=== PATIENT | male | born 1975 ===

== ENCOUNTER 2021-10-07 14:16 | Outpatient (REF) | payer OTHER, SELFPAY ==
[2021-10-07 14:42] LABS: MANUAL DIFF FLAG NO
[2021-10-07 15:00] LABS: Basophils Absolute Auto 0.1 X10*3/uL (0.0-0.2); Basophils Percent Auto 0.5 % (0-2); Eosinophils Absolute Auto 0.2 X10*3/uL (0.0-0.4); Eosinophils Percent Auto 1.5 % (0-4); Hematocrit 45.3 % (42.0-52.0); Hemoglobin 15.3 g/dl (14.0-18.0); Imm Gran Abs Auto 0.03 X10*3/uL (0.00-0.03); Imm Gran Pct Auto 0.3 % (0.0-0.4); Lymphocytes Percent Auto 29.3 % (20-40); Mean Corpuscular HGB Conc 33.8 g/dl (31.0-36.0); Mean Corpuscular Hemoglobin 30.6 pg (27.0-33.0); Mean Corpuscular Volume 90.6 fL (80.0-98.0); Mean Platelet Volume 10.6 fL (9.4-12.4); Monocytes Percent Auto 9.1 % (2-11); Neutrophils Absolute Auto 6.2 x10*3/uL (2.0-8.3); Neutrophils Percent Auto 59.3 % (45-73); Platelet Count 286 X10*3/uL (160-400); Red Cell Distribution Width 12.9 % (11.0-16.0); White Blood Count 10.4 X10*3/uL (4.8-10.8)
[2021-10-07 15:07] LABS: Estimated Average Glucose 117 mg/dL; Hemoglobin A1C 152.5273 umol/L; Hemoglobin A1c % 5.7 %
[2021-10-07 15:35] LABS: Alanine Aminotransferase 47 U/L (0-40); Albumin Level 4.6 g/dL (3.5-5.0); Alkaline Phosphatase 59 U/L (39-117); Anion Gap 14 (12-20); Aspartate Amino Transferase 39 U/L (5-37); Bilirubin Total 0.4 mg/dL (0.0-1.0); Blood Urea Nitrogen 23 mg/dL (9-16); Calcium 10.2 mg/dL (8.4-10.2); Carbon Dioxide 25 mmol/L (22-29); Chloride 103 mmol/L (96-108); Estimated Glomerular Filt Rate 52; Glucose Random 98 mg/dL (60-115); Potassium 4.2 mmol/L (3.3-5.1); Sodium 138 mmol/L (135-145); Total Protein 7.7 g/dL (6.5-8.0)
== END 2021-10-07 14:17 | disposition home or self-care (01) ==
LOC: HO.LAB 14:16
PROVIDERS: PCP Internal Medicine; Visit Provider Internal Medicine
DX: E11.9 Type 2 diabetes mellitus without complications (principal); R10.13 Epigastric pain; R19.7 Diarrhea, unspecified; Z80.0 Family history of malignant neoplasm of digestive organs
CPT/HCPCS: 36415; 80053; 83036; 85025

== ENCOUNTER 2022-08-19 12:51 | Outpatient (REF) | payer OTHER, SELFPAY | END 2022-08-19 12:52 | disposition home or self-care (01) | LOC: HO.HOSX 12:51 | PROVIDERS: PCP Internal Medicine; Visit Provider Physician Assistant | DX: M65.342 Trigger finger, left ring finger (principal) | CPT/HCPCS: 99202 ==

== ENCOUNTER 2022-08-19 13:30 | Outpatient (REF) | payer OTHER, SELFPAY ==
--- NOTE | ~2022-08-19 | XR_ITS ---
EXAMINATION: XR SHOULDER, LEFT CLINICAL INFORMATION: Pain COMPARISON: None available. TECHNIQUE: AP external rotation, Grashey, scapular Y, and axillary views of the left shoulder. FINDINGS: The bones and soft tissues are normal. No fracture. Glenohumeral and acromioclavicular alignment is anatomic with normal joint space. No abnormal soft tissue calcifications. XR/XR shoulder LT min 2V IMPRESSION: No significant osseous changes to explain patient's pain symptoms.
== END 2022-08-19 13:31 | disposition home or self-care (01) ==
LOC: HO.XRAY 13:30
PROVIDERS: PCP Internal Medicine; Visit Provider Nurse Practitioner Family
DX: M25.512 Pain in left shoulder (principal)
CPT/HCPCS: 73030

== ENCOUNTER 2022-09-25 11:21 | Day surgery (SDC) | payer OTHER, SELFPAY ==
--- NOTE | 2022-09-25 09:59 | W.PM.OPN ---
Operative Note Operative Note Date of Service: 09/25/22 Narrative: Operative Note Preop diagnosis: 1. Left ring finger Trigger finger Postop diagnosis: 1. Left ring finger Trigger finger Procedure: 1. Left ring finger A1 remigio release Surgeon: Kim Olson MD Anesthesia: local block using 1% lidocaine with epinephrine Findings: No locking or catching after A1 remigio release EBL: Less than 5 mL Tourniquet time: None Specimens: None Complications: None Disposition: Brought to recovery room in stable condition Plan: Follow-up for 10-14 days for wound check and suture removal Indications: The patient is 46 years old, with a left ring finger trigger finger that has been unresponsive to nonoperative management. The risks and benefits of operative treatment including but not limited to risk of damage to blood vessels, nerves, tendons, infection, persistent pain, persistent symptoms, recurrence or possible need for additional surgery were discussed with the patient and the patient wishes to proceed with surgery. Procedure: Once consent was obtained a local block was performed in the preop area using a combination of 1% lidocaine with epinephrine. The patient was then brought back to the operating suite and placed on the operative table in supine position. The left upper extremity was prepped and draped in a standard surgical fashion. Once assured that we had a good block, a 1.5 cm oblique incision was made centered over the A1 remigio of the left ring finger . The incision was made through the skin to the subcutaneous tissues using a #15 blade. Careful dissection was made down to the level of the A1 remigio using tenotomy scissors, with care being taken to protect the nearby neurovascular structures. A longitudinal incision was made in the A1 remigio 1st using a #15 blade, then using tenotomy scissors under direct visualization. The A1 remigio was noted to be thickened. Following our A1 remigio release, we no longer saw any locking or catching of the digit with flexion and extension. Once satisfied with our A1 remigio release the wound was copiously irrigated with normal saline and hemostasis was obtained with a brief period of local pressure. The skin edges were reapproximated with some 5.0 nylon suture material and a sterile dressing was applied. The patient appears to have tolerated the procedure well and with no complications. All digits were well vascularized at the conclusion of the case.
[2022-09-25 12:46] VITALS: BMI 40.0
--- NOTE | 2022-09-25 16:12 | MHC.SHP ---
Pre-Procedural Eval Section A Date of Service: 09/25/22 The patient is an INPATIENT: No Changes since office visit: No Cold of Flu in the past 2 weeks, No New Medical Problems, No Changes in Medication and No Patient answered all questions The History & Physical has been completed within 30 days and I have reviewed it.: Yes Section B Chief Complaint: Trigger finger, left ring finger Allergies: Allergies Allergy/AdvReac Type Severity Reaction Status Date / Time No Known Allergies Allergy Verified 09/25/22 13:18 Plan I have reviewed the history and physical and performed a pertinent physical examination on my patient. No changes have occurred unless specified. Time Spent With Patient Time: Total time managing care of this patient today ____ minutes.
[2022-09-25 16:14] VITALS: BP 129/86; PULSE 69; RESP 16; TEMP 36.9; O2SAT 97
== END 2022-09-25 16:19 | disposition home or self-care (01) ==
PROVIDERS: PCP Internal Medicine; Visit Provider Orthopaedic Surgery
PROC: (CPT 26055; principal; 2022-09-25 13:10)
DX: M65.342 Trigger finger, left ring finger (principal); R73.03 Prediabetes; Z79.84 Long term (current) use of oral hypoglycemic drugs; I10 Essential (primary) hypertension; F10.90 Alcohol use, unspecified, uncomplicated; F12.90 Cannabis use, unspecified, uncomplicated
CPT/HCPCS: 26055; J0171

== ENCOUNTER → 2022-10-08 14:28 | Outpatient (BNVA) | payer OTHER, SELFPAY | PROVIDERS: PCP Internal Medicine; Visit Provider Orthopaedic Surgery | DX: Z47.89 Encounter for other orthopedic aftercare (principal); Z87.39 Personal history of other diseases of the musculoskeletal system and connective tissue | CPT/HCPCS: 99212 ==

== ENCOUNTER 2022-12-19 09:39 | Outpatient (REF) | payer OTHER, SELFPAY ==
--- NOTE | ~2022-12-19 | XR_ITS ---
X-RAY RIGHT KNEE X-RAY BILATERAL STANDING KNEES CLINICAL HISTORY: Pain. COMPARISON: No relevant prior studies are available for comparison. TECHNIQUE: 2 views of the right knee. One single standing view of both knees. FINDINGS: No evidence of acute fractures or subluxation. Severe joint space narrowing and subcortical sclerosis in the medial compartment of the right knee. Mild to moderate joint space narrowing in the other compartments of both knees. Marginal osteophytes in the right knee. No erosions or chondrocalcinosis. Small joint effusion in the right knee. XR/XR knee standing BI IMPRESSION: 1. No acute fractures or subluxation. 2. Severe degenerative osteoarthritis in the medial compartment of the right knee. 3. Mild to moderate degenerative osteoarthritis in the other compartments of the knees. 4. Small right joint effusion.
--- NOTE | ~2022-12-19 | XR_ITS ---
X-RAY RIGHT KNEE X-RAY BILATERAL STANDING KNEES CLINICAL HISTORY: Pain. COMPARISON: No relevant prior studies are available for comparison. TECHNIQUE: 2 views of the right knee. One single standing view of both knees. FINDINGS: No evidence of acute fractures or subluxation. Severe joint space narrowing and subcortical sclerosis in the medial compartment of the right knee. Mild to moderate joint space narrowing in the other compartments of both knees. Marginal osteophytes in the right knee. No erosions or chondrocalcinosis. Small joint effusion in the right knee. XR/XR knee RT 2V IMPRESSION: 1. No acute fractures or subluxation. 2. Severe degenerative osteoarthritis in the medial compartment of the right knee. 3. Mild to moderate degenerative osteoarthritis in the other compartments of the knees. 4. Small right joint effusion.
== END 2022-12-19 09:40 | disposition home or self-care (01) ==
LOC: HO.HOSX 09:39
PROVIDERS: Visit Provider Orthopaedic Surgery
DX: M17.11 Unilateral primary osteoarthritis, right knee (principal); M21.161 Varus deformity, not elsewhere classified, right knee
CPT/HCPCS: 73560; 73565

== ENCOUNTER 2022-12-19 11:50 | Outpatient (AMB) | payer OTHER, SELFPAY ==
--- NOTE | 2022-12-19 11:58 | MHC.OFFVIS ---
Intake Vital Signs 12/19/22 11:59 Height 6 ft 4 in Weight 329 lb BMI 40.0 Intake Visit Reasons: New Prob- Right knee OA Intake Note: Fernando is a 46 year old female who presents today as a new patient with complaints of right knee pain. Hx of injections? Hx of PT? Patient reports ongoing pain for many years, it has gotten worse in the past year. He states his pain is on the lateral aspect of the knee. Pain is worse at night, walking, using stairs. Having c/o of left shoulder pain. Allergies No Known Allergies Allergy (Verified 12/19/22 11:59) HPI New Prob- Right knee OA HPI Details This is a 46-year-old gentleman who comes in today with right knee pain. He states the pain is intolerable . He has pain after activity which makes it difficult to sleep. He has difficulty with daily activities. This has been worsening over the past several years. He has a deformity of his right knee which she has had since he was young trialed although he can not specifically tell me why. He states he has always noticed that he has been very bowlegged on that side but it has gotten worse and his pain is becoming unbearable. He has had injections in the past and used an unloading brace both of which are not helpful. [facility] Medical History History of prediabetes Social History Alcohol intake: current Substance Use Type: Marijuana Physical Exam Vital Signs: BMI result Body Mass Index 40.0 Extrem Other: Severe varus deformity with tenderness to palpation over the medial joint line. Antalgic gait. 10-130 degrees of motion. Severe varus thrust with gait Results Reviewed Results Reviewed: I personally reviewed relevant radiographs. 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 He also has significant pain and is limited in his daily activities. He has failed conservative care. He states he scheduled to have bariatric surgery. I recommend that he return to see me after bariatric surgery we can further discuss. Given the extent of his deformity and his attempts at conservative treatment, all of which have failed, I do think he would benefit from arthroplasty even given his relatively young age. I discussed this with him. We will discuss further after he completes his bariatric surgery. Orders: Orders XR knee RT 2V Today M25.569 - Pain in unspecified knee XR knee standing BI Today M25.569 - Pain in unspecified knee Coding Level of Care Code New Pt Level 4 (98027) Diagnoses Varus deformity, not elsewhere classified, right knee M21.161 Arthritis of right knee M17.11
[2022-12-19 11:59] VITALS: BMI 40.0
== END 2022-12-19 12:30 | disposition home or self-care (01) ==
PROVIDERS: PCP Internal Medicine; Visit Provider Orthopaedic Surgery
DX: M21.161 Varus deformity, not elsewhere classified, right knee (principal); M17.11 Unilateral primary osteoarthritis, right knee
CPT/HCPCS: 99213

== ENCOUNTER 2023-05-21 11:51 | Outpatient (AMB) | payer OTHER, SELFPAY ==
--- NOTE | 2023-05-21 12:10 | MHC.OFFVIS ---
Intake Intake Visit Reasons: OV- Right knee OA Intake Note: Fernando is a 47 year old male who presents today for a follow up of his right knee varus OA. Patient was going to have bariatric surgery done and then follow up with us. He has had bariatric surgery and has lost significant weight. He took a fall about 4 days ago. He is asking for a new knee brace as the brace is too big since loosing weight. He is also inquiring about prescription for forearm crutches Allergies No Known Allergies Allergy (Verified 12/19/22 11:59) HPI OV- Right knee OA HPI Details Fernando is a 47 year old man who returns to discuss his right knee OA. At his last appointment, surgery was discussed, and he was to follow up when he had recovered from his Bariatric surgery. He has severe varus right knee osteoarthritis. He has been walking with a cane since he was a teenager. He denies worsening symptoms but now that he has lost so much weight he feels more motivated to have his knee fixed. [facility] Medical History History of prediabetes Social History Alcohol intake: current Substance Use Type: Marijuana Review of Systems Const All systems reviewed & are unremarkable except as noted in HPI and below Physical Exam Const General: no acute distress, alert and awake Orientation/consciousness: patient oriented x3 HEENT Head: Yes normocephalic and Yes atraumatic Eyes EOM: EOMs intact bilaterally Resp Effort & Inspection: normal respiratory effort and able to speak in complete sentences Cardio Jugular venous distension: no JVD Skin General skin exam: turgor normal Rashes: no rashes Neuro General: patient oriented x3 Extrem Other: Severe varus thrust with gait. 20 degree varus abnormality Prominent medial femoral condyle Walks with a cane 10-100 degrees of motion Psych Appearance: grossly normal Affect: normal affect Attitude: cooperative Results Reviewed Results Reviewed: I personally reviewed relevant radiographs. severe varus deformity with associated OA right knee Assessment & Plan Assessment & Plan (1) Varus deformity, not elsewhere classified, right knee: Code(s): M21.161 - Varus deformity, not elsewhere classified, right knee Plan: Severe OA with varus deformity right knee.He has failed injections, bracing, activity modification and NSAIDs. We discussed treatment options knee arthroplasty. I explained the procedure and the details and reviewed her x-rays with.I discussed the risks benefits and alternatives including but not limited to the risk of pain, infection, stiffness, need for further surgery as well as potential medical complications such as blood clots, pulmonary embolism and cardiac complications. She expressed understanding and we will proceed forward accordingly. He has moderate deformity which will likely require more constraint which can lead to early loosening. I explained this to him. He understands. (2) Arthritis of right knee: Code(s): M17.11 - Unilateral primary osteoarthritis, right knee Plan Scribed for Franky Boyer MD by Abhay Farfan, medical billing supervisor, on 05/21/23 at 12:20 PM, EST. Coding Level of Care Code Est Pt Level 4 (20432) Diagnoses Varus deformity, not elsewhere classified, right knee M21.161 Arthritis of right knee M17.11
== END 2023-05-21 13:24 | disposition home or self-care (01) ==
PROVIDERS: PCP Internal Medicine; Visit Provider Orthopaedic Surgery
DX: M17.11 Unilateral primary osteoarthritis, right knee (principal); M21.161 Varus deformity, not elsewhere classified, right knee
CPT/HCPCS: 99214

== ENCOUNTER → 2023-05-21 11:51 | Outpatient (BNVA) | payer OTHER, SELFPAY | PROVIDERS: PCP Internal Medicine; Visit Provider Orthopaedic Surgery | DX: M21.161 Varus deformity, not elsewhere classified, right knee (principal); M17.11 Unilateral primary osteoarthritis, right knee | CPT/HCPCS: 99212 ==

== ENCOUNTER 2023-06-12 11:39 | Outpatient (REF) | payer MEDICAID, SELFPAY ==
[2023-06-12 13:13] LABS: MANUAL DIFF FLAG NO
[2023-06-12 13:27] LABS: Basophils Percent Auto 0.5 % (0-2); Eosinophils Absolute Auto 0.1 X10*3/uL (0.0-0.4); Eosinophils Percent Auto 0.9 % (0-4); Hematocrit 40.4 % (42.0-52.0); Hemoglobin 13.7 g/dl (14.0-18.0); Imm Gran Abs Auto 0.02 X10*3/uL (0.00-0.03); Imm Gran Pct Auto 0.3 % (0.0-0.4); Lymphocytes Absolute Auto 1.8 X10*3/uL (1.2-4.9); Lymphocytes Percent Auto 28.4 % (20-40); Mean Corpuscular HGB Conc 33.9 g/dl (31.0-36.0); Mean Corpuscular Hemoglobin 31.4 pg (27.0-33.0); Mean Corpuscular Volume 92.4 fL (80.0-98.0); Mean Platelet Volume 10.7 fL (9.4-12.4); Monocytes Absolute Auto 0.6 X10*3/uL (0.1-1.2); Monocytes Percent Auto 8.5 % (2-11); Neutrophils Percent Auto 61.4 % (45-73); Platelet Count 237 X10*3/uL (160-400); Red Blood Count 4.37 X10*6/uL (4.60-5.80); Red Cell Distribution Width 14.6 % (11.0-16.0); White Blood Count 6.5 X10*3/uL (4.8-10.8)
[2023-06-12 14:05] LABS: Alanine Aminotransferase 12 U/L (0-40); Albumin Level 4.4 g/dL (3.5-5.0); Alkaline Phosphatase 53 U/L (39-117); Aspartate Amino Transferase 18 U/L (5-37); Bilirubin Direct 0.3 mg/dL (0.0-0.5); Bilirubin Total 0.8 mg/dL (0.0-1.0); Blood Urea Nitrogen 19 mg/dL (9-16); Estimated Glomerular Filt Rate > 60; Total Protein 7.2 g/dL (6.5-8.0)
[2023-06-12 14:48] LABS: CT PCR NOT DETECTED (Not Detect.); NG PCR NOT DETECTED (Not Detect.)
[2023-06-14 04:36] LABS: Syphilis Screen Nonreactive (Nonreactive)
[2023-06-14 05:13] LABS: Hepatitis A Antibody IgG REACTIVE (Nonreactive); ~Hepatitis A Antibody IgG 11.97 S/CO (0.00-0.99)
[2023-06-14 05:19] LABS: HBS Num1 3.66 mIU/mL (0-7.99); HBc Num1 5.79 S/CO (0.00-0.79); HBsAGNum1 0.28 S/CO (0.00-0.99); HIV AB/AG Nonreactive (Nonreactive); HIV Num 1 0.05 S/CO (0.00-0.99); Hepatitis B Surface Antigen Negative (Negative); ~HepC Num1 5.41 S/CO (0.00-0.79); ~Hepatitis B Surface Antibody NONREACTIVE (Nonreactive); ~Hepatitis C Antibody Reactive (Nonreactive)
[2023-06-14 06:25] LABS: HBc Num2 5.84 S/CO; Hepatitis B Core Antibody Reactive (Nonreactive)
[2023-06-14 20:54] LABS: TS Negative Control Passed; TS Panel A 0; TS Panel B 0; TS Positive Control Passed; TSpotTB Negative (Negative)
[2023-06-15 17:28] LABS: Hepatitis B Core Antibody IgM NON-REACTIVE (NON-REACTIVE)
[2023-06-18 17:52] LABS: HCV Log PCR <1.18 NOT DETECTED Log IU/mL (NOT DETECTED); HepC Viral Load <15 NOT DETECTED IU/mL (NOT DETECTED)
== END 2023-06-12 11:40 | disposition home or self-care (01) ==
LOC: HO.HHCL 11:39
PROVIDERS: Visit Provider Emergency Medicine
DX: F11.20 Opioid dependence, uncomplicated (principal)
CPT/HCPCS: 0353U; 36415; 80076; 82565; 84520; 85025; 86481; 86704; 86705; 86706; 86708; 86780; 86803; 87340; 87389; 87522

== ENCOUNTER 2023-06-26 10:16 | Outpatient (REF) | payer MEDICAID, SELFPAY ==
[2023-06-30 12:17] LABS: Hepatitis B Viral DNA Qn - cp NOT DETECTED Log IU/mL (NOT DETECTED); Hepatitis B Viral DNA Qn-IU/mL NOT DETECTED (NOT DETECTED)
== END 2023-06-26 10:17 | disposition home or self-care (01) ==
LOC: HO.HHCL 10:16
PROVIDERS: Visit Provider Emergency Medicine
DX: F11.20 Opioid dependence, uncomplicated (principal)
CPT/HCPCS: 36415; 87517

== ENCOUNTER 2023-12-15 12:39 | Outpatient (AMB) | payer MEDICAID, SELFPAY ==
--- NOTE | 2023-12-15 13:03 | A.OFFVIS_ITS ---
Intake Visit Reasons: New Prob- Chronic left shoulder pain Intake Note: Liz 47 year old right hand dominant who presents today for an evaluation of left shoulder pain. Patient reports pain has been present for about 7 months, denies injury. He states an increase of pain with movement and will feel like his arm will pop out. PT in the past with no help. His pain is located near his clavicle area and wraps. pop with lifitng items. Denies numbness or tingling. No injury. 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 He states he has pain near his clavicle area and wraps that is aggravated with movement and he feels as his arm will pop out when he moves. He also experiences popping with lifting items. He denies any numbness or tingling. He has tried physical therapy in the past without benefits. He finds no relief with lidocaine patches, heat, or Tylenol. He also had injection in the past with no relief. He has a history of left shoulder injury about 10 years ago. He has a history of prediabetes. [facility] Medical History (Updated 12/15/23 @ 13:41 by Blair Rao PA-C) History of prediabetes Surgical History (Updated 12/15/23 @ 13:10 by BARRON Chase) History of bariatric surgery Social History (Updated 12/15/23 @ 13:11 by BARRON Chase) Alcohol intake: current Patient Tobacco Use Status: Never used Tobacco Substance Use Type: Marijuana Current occupational status: unemployed Review of Systems Const All systems reviewed & are unremarkable except as noted in HPI and below Physical Exam Extrem Other: Left shoulder: Normal to inspection. Tenderness over the bicipital groove and along the deltoid region of the shoulder. Forward flexion to 175, external rotation to 90, internal rotation to S1. 5/5 RTC strength. Positive Stephens and cross body abduction. NVI. Office Procedures Joint Injection/Drain Joint Injection/Drain Primary Site: left shoulder Prep: site was prepped using aseptic technique, ethochloride spray was applied and injection warnings given Injected: 80 mg of, DepoMedrol, with 8 mL of, 1% plain lidocaine and in the subcromial space Approach Used: posterolateral Procedure: The patient tolerated the procedure well and there was some relief with the local anesthesia Coding - Glenohumeral/Tronchanteric Bursa/Intraarticular Procedure code (CPT) selection complete Results Reviewed Results Reviewed: IMPRESSION: 1. No acute fractures or subluxation. 2. Severe degenerative osteoarthritis in the medial compartment of the right knee. 3. Mild to moderate degenerative osteoarthritis in the other compartments of the knees. 4. Small right joint effusion. Assessment & Plan Assessment & Plan (1) Tendinitis of left rotator cuff: Code(s): M75.82 - Other shoulder lesions, left shoulder Category: Medical Plan We discussed options today, which include steroid injection. The patient did consent to move forward with the left shoulder injection, which was tolerated well. I recommended rest, ice, and elevation and OTC anti-inflammatories as needed for discomfort. An order for physical therapy was also placed in the office today. If symptoms persist or worsen over the next 6-8 weeks, patient will contact the office, otherwise follow-up as needed. Orders: Orders PT Evaluation and Treatment Today M75.82 - Other shoulder lesions, left shoulder Patient Instructions: Scribed for Blair Rao PA-C, by Jai Roque medical office worker, on 12/15/2023 at 1:00 PM EST.? I, Blair Rao PA-C, have personally reviewed and agree with the information entered by the scribe. Coding Level of Care Code New Pt Level 3 (41979) Diagnoses Tendinitis of left rotator cuff M75.82 CPT Codes Coding - Joint 7: 10722 - Glenohumeral/Tronchanteric Bursa/Intraarticular ([id number])
== END 2023-12-15 14:10 | disposition home or self-care (01) ==
PROVIDERS: PCP Internal Medicine; Visit Provider Physician Assistant
DX: M75.82 Other shoulder lesions, left shoulder (principal)
CPT/HCPCS: 20610; 99203

== ENCOUNTER → 2023-12-15 12:39 | Outpatient (BNVA) | payer MEDICAID, SELFPAY | PROVIDERS: PCP Internal Medicine; Visit Provider Physician Assistant | DX: M75.82 Other shoulder lesions, left shoulder (principal) | CPT/HCPCS: 20610; 99212; J1010 ==

== ENCOUNTER 2024-06-21 16:07 | Outpatient (REF) | payer MEDICAID, SELFPAY ==
--- NOTE | ~2024-06-21 | XR_ITS ---
CLINICAL HISTORY: PAIN Exam: AP, Grashey, and scapular Y-views of the right shoulder. Comparison: None. Findings: Bony alignment is anatomic without fracture, dislocation, or separation. Glenohumeral joint and AC joint are well maintained. Minor insertional change of the greater tuberosity. Impression: No acute findings. This document has been electronically signed by: Vito Amezcua MD on 06/22/2024 05:30:56
== END 2024-06-21 16:08 | disposition home or self-care (01) ==
LOC: HO.XRAY 16:07
PROVIDERS: PCP Internal Medicine; Visit Provider Internal Medicine
DX: M75.01 Adhesive capsulitis of right shoulder (principal)
CPT/HCPCS: 73030

== ENCOUNTER → 2024-06-21 16:21 | Outpatient (BNV) | payer MEDICAID, SELFPAY | PROVIDERS: PCP Internal Medicine; Visit Provider Radiology Diagnostic Radiology | DX: M75.31 Calcific tendinitis of right shoulder (principal) | CPT/HCPCS: 73030 ==

== ENCOUNTER 2024-11-14 09:48 | Outpatient (REF) | payer MEDICAID, SELFPAY ==
--- OUTSIDE RECORDS SUMMARY | 2024-11-14 10:47 | XMS_ITS | Clinical Summary ---
Author Organization 175 [facility] Address [address] [place] [address] Phone Care Team Providers Care Analytics Analyst Name Role Phone Ara Davis MD Primary Care Provider [phone] Allergies Active Allergy Reactions Criticality Noted Date Comments Latex Hives 10/11/2024 Medications No known medications Active Problems Problem Noted Date Diagnosed Date GERSON treated with BiPAP Overview (10/19/2024): DX:GERSON treated with BiPAP Encounters Date Type Department Care Team Description 11/07/2024 Lab Requisition [facility] - Main Lab 299 [facility] [place] [address] Ara Davis MD Benign prostatic hyperplasia without lower urinary tract symptoms; Type 2 diabetes mellitus without complications (CMS/[facility] V24, [facility] V28) 10/19/2024 6:17 PM EDT - 10/20/2024 12:03 AM EDT Emergency [facility] Emergency [address] [place] [phone] Discharge Disposition: Home or Self Care 10/11/2024 11:15 AM EDT Office Visit Bariatric Surgery - Phyllis 175 [facility] [address] [place] [address] Loagn Harris MD Dysphagia, unspecified type (Primary Dx); Epigastric pain; Postgastrectomy malabsorption from Last 3 Months Surgical History Surgery Date Site/Laterality Comments HERNIA REPAIR PROCEDURE: REPAIR UMBILICAL HERNIA BARIATRIC SURGERY Medical History Medical History Date Comments Asthma DX:Asthma Depression DX:Depression Hyperlipidemia DX:Hyperlipidemi a Class 1 obesity due to exces s calories with body mass index (BMI) of 34.0 to 34.9 in adult 07/24/2021 DX:Class 1 obesity due to ex cess calories with body mass index (BMI) of 34.0 to 34.9 in adult Social History Tobacco Use Types Packs/Day Years Used Date Smoking Tobacco: Former Smokeless Tobacco: Never Alcohol Use Standard Drinks/Week Comments No 0 (1 standard drink = 0.6 oz pur e alcohol) Sex and Gender Information Value Date Recorded Sex Assigned at Not on file Legal Sex Male 2:14 AM EST Gender Identity Not on file Sexual Orientation Not on file Obstetrics History Last Filed Vital Signs Vital Sign Reading Time Taken Comments Blood Pressure 115/68 10/19/2024 11:52 PM EDT Pulse 67 10/19/2024 11:52 PM EDT Temperature 36.4 ??C (97.5 ??F) 10/19/2024 11:52 PM E DT Respiratory Rate 18 10/19/2024 11:52 PM EDT Oxygen Saturation 97% 10/19/2024 11:52 PM EDT Inhaled Oxygen Concentration - - Weight 82.6 kg (182 lb) 10/19/2024 6:34 PM EDT Height 193 cm (6' 4 ) 10/19/2024 6:34 PM EDT Body Mass Index 22.15 10/19/2024 6:34 PM EDT Plan of Treatment Upcoming Encounters Date Type Department Care Team (Late st Contact Info) Description 12/07/2024 9:15 AM EDT Appointment [facility] Xray [address] [place] [phone] 02/21/2025 10:45 AM EDT Office Visit Bariatric Surgery - Phyllis [address] [phone] Logan Harris MD [address] [address] Health Maintenance Due Date Last Done Comments Diabetes: Annual Foot Exam 12/30/1983 Diabetes: Annual Retina Eye Exam 12/30/1983 DTaP,Tdap,and Td Vaccines (1 - Tdap) 1992 Pneumococcal Vaccine: 50+ Years (1 of 2 - PCV) 1992 Pneumococcal Vaccine: Pediatrics (0 to 5 Years) and At-Risk Patients (6 to 64 Years) (1 of 2 - PCV) 1992 Hepatitis B Vaccines (3 of 3 - 19+ 3-dose series) 11/08/2015 09/13/2015, 06/15/2013, 11/11/2012 Cholesterol Screening (Lipid Panel) 05/10/2022 Colorectal Cancer Screening: Colonoscopy 05/10/2022 Social Influencers of Health Screening 05/10/2022 Zoster Vaccines (1 of 2) 12/30/2023 COVID-19 Vaccine ( - 2023-2 5 season) 2024 02/19/2021, 01/29/2021 Depression Screening 07/29/2024 07/29/2023 Diabetes: Annual Urine Albumin-Creatinine Ratio (uACR) 10/20/2024 Influenza Vaccine (Season Ended) 2025 06/13/2019, 09/12/2015 Diabetes: Blood Sugar Contro l Test (HGBA1C) 04/28/2025 10/26/2024 Diabetes: Annual GFR (Glomerular Filtration Rate) 10/26/2025 10/26/2024, 10/19/2024 Hypertension/CHF/CAD Annual BMP Blood Test 10/26/2025 10/26/2024, 10/19/2024 HIV Screening Completed 06/12/2023 Hepatitis C Screening Completed 06/12/2023 HIB Vaccines Aged Out No longer eligi ble based on patient's age to complete this topic HPV Vaccines Aged Out No longer eligi ble based on patient's age to complete this topic Hepatitis A Vaccines Aged Out No long er eligible based on patient's age to complete this topic IPV Vaccines Aged Out No longer eligi ble based on patient's age to complete this topic MMR Vaccines Aged Out No longer eligi ble based on patient's age to complete this topic Meningococcal ACWY Vaccine Aged Out N o longer eligible based on patient's age to complete this topic Meningococcal B Vaccine Aged Out No l onger eligible based on patient's age to complete this topic RSV Immunization Patients Under 20 months Aged Out No longer eligible b ased on patient's age to complete this topic Varicella Vaccines Aged Out No longer eligible based on patient's age to complete this topic Procedures Procedure Name Priority Date/Time Associated Diagnosis Comments CBC WITH AUTO DIFFERENTIAL Routine 10/26/2024 8:12 AM EDT Diabetes mellitus (CMS/HCC V24, CMS/HCC V28) Adhesive bursitis of right shoulder Loss of weight Bariatric surgery status FOLATE Routine 10/26/2024 8:12 AM EDT Postgastrectomy malabsorption IRON AND TIBC Routine 10/26/2024 8:12 AM EDT Postgastrectomy malabsorption VITAMIN D 25 HYDROXY Routine 10/26/2024 8:12 AM EDT Postgastrectomy malabsorption CBC AND DIFFERENTIAL Routine 10/26/2024 8:12 AM EDT Diabetes mellitus (CMS/HCC V24, CMS/HCC V28) Adhesive bursitis of right shoulder Loss of weight Bariatric surgery status COMPREHENSIVE METABOLIC PANEL Routine 10/26/2024 8:12 AM EDT Diabetes mellitus (CMS/HCC V24, CMS/HCC V28) Adhesive bursitis of right shoulder Loss of weight Bariatric surgery status THYROID STIMULATING HORMONE WITH REFLEX TO FREE T4 AND FREE T3 Routine 10/26/2024 8:12 AM EDT Diabetes mellitus (CMS/HCC V24, CMS/HCC V28) Adhesive bursitis of right shoulder Loss of weight Bariatric surgery status HEMOGLOBIN A1C Routine 10/26/2024 8:12 AM EDT Diabetes mellitus (CMS/HCC V24, CMS/HCC V28) Adhesive bursitis of right shoulder Loss of weight Bariatric surgery status FERRITIN Routine 10/26/2024 8:12 AM EDT Diabetes mellitus (CMS/HCC V24, CMS/HCC V28) Adhesive bursitis of right shoulder Loss of weight Bariatric surgery status VITAMIN B12 Routine 10/26/2024 8:12 AM EDT Diabetes mellitus (CMS/HCC V24, CMS/HCC V28) Adhesive bursitis of right shoulder Loss of weight Bariatric surgery status ZINC Routine 10/26/2024 8:12 AM EDT Postgastrectomy malabsorption CBC WITH AUTO DIFFERENTIAL STAT 10/19/2024 7:01 PM EDT LIPASE STAT 10/19/2024 7:01 PM EDT COMPREHENSIVE METABOLIC PANEL STAT 10/19/2024 7:01 PM EDT CBC AND DIFFERENTIAL STAT 10/19/2024 7:01 PM EDT from Last 3 Months Results * Thyroid stimulating hormone with reflex to free t4 and free t3 (10/26/2024 8:12 AM EDT) [facility] TSH 0.84 0.40 - 4.00 mcIU/mL LAB CHEMISTRY METHOD 10/26/2024 12:41 PM EDT [facility] Blood Venous blood specimen / Unknown Venipuncture / Unknown 10/26/2024 8:12 AM EDT 10/26/2024 8:12 AM EDT us Ara Davis MD LAB BLOOD ORDERABLES Final Re sult [facility] [address] [place] [address], [place] [phone] * CBC auto differential (10/26/2024 8:12 AM EDT) Only the most recent of2 resultswithin the time period is included. Pathologist [facility] WBC 7.6 4.8 - 10.8 K/mcL LAB HEMETOLOGY METHOD 10/26/2024 10:37 AM EDT [facility] RBC 4.80 4.50 - 5.50 M/mcL LAB HEMETOLOGY METHOD 10/26/2024 10:37 AM EDT [facility] Hemoglobin 15.0 13.5 - 17.5 g/dL LAB HEMETOLOGY METHOD 10/26/2024 10:37 AM [facility] Hematocrit 44.2 42.0 - 54.0 % LAB HEMETOLOGY METHOD 10/26/2024 10:37 AM [facility] MCV 93.1 79.0 - 98.0 FL LAB HEMETOLOGY METHOD 10/26/2024 10:37 AM [facility] MCH 31.6 27.0 - 32.0 pcg LAB HEMETOLOGY METHOD 10/26/2024 10:37 AM [facility] MCHC 33.9 32.0 - 37.0 g/dL LAB HEMETOLOGY METHOD 10/26/2024 10:37 AM [facility] RDW 12.7 11.0 - 15.0 % LAB HEMETOLOGY METHOD 10/26/2024 10:37 AM [facility] Platelets 214 130 - 400 K/mcL LAB HEMETOLOGY METHOD 10/26/2024 10:37 AM [facility] MPV 10.2 7.0 - 11.0 FL LAB HEMETOLOGY METHOD 10/26/2024 10:37 AM [facility] NRBC 0.0 <1.0 % LAB HEMETOLOGY METHOD 10/26/2024 10:37 AM [facility] NRBC Absolute 0.00 <0.10 K/mcL LAB HEMETOLOGY METHOD 10/26/2024 10:37 AM [facility] Neutrophils Relative 49.4 % LAB HEMETOLOGY METHOD 10/26/2024 10:37 AM [facility] Lymphocytes Relative 38.1 % LAB HEMETOLOGY METHOD 10/26/2024 10:37 AM [facility] Monocytes Relative 8.8 % LAB HEMETOLOGY METHOD 10/26/2024 10:37 AM [facility] Eosinophils Relative 2.7 % LAB HEMETOLOGY METHOD 10/26/2024 10:37 AM EDT [facility] Basophils Relative 0.7 % LAB HEMETOLOGY METHOD 10/26/2024 10:37 AM EDT [facility] Immature Granulocytes Relative 0.3 % LAB HEMETOLOGY METHOD 10/26/2024 10:37 AM EDT [facility] Neutrophils Absolute 3.78 1.50 - 7.00 K/mcL LAB HEMETOLOGY METHOD 10/26/2024 10:37 AM EDT [facility] Lymphocytes Absolute 2.91 1.00 - 5.00 K/mcL LAB HEMETOLOGY METHOD 10/26/2024 10:37 AM EDT [facility] Monocytes Absolute 0.67 0.20 - 1.00 K/mcL LAB HEMETOLOGY METHOD 10/26/2024 10:37 AM EDT [facility] Eosinophils Absolute 0.21 0.00 - 0.50 K/mcL LAB HEMETOLOGY METHOD 10/26/2024 10:37 AM EDT [facility] Basophils Absolute 0.05 0.00 - 0.20 K/mcL LAB HEMETOLOGY METHOD 10/26/2024 10:37 AM EDT [facility] Immature Granulocytes Absolute 0.02 0.00 - 0.03 K/mcL LAB HEMETOLOGY METHOD 10/26/2024 10:37 AM EDT [facility] Blood Venous blood specimen / Unknown Venipuncture / Unknown 10/26/2024 8:12 AM EDT 10/26/2024 8:12 AM EDT us Ara Davis MD LAB BLOOD ORDERABLES Final Re sult [facility] [address] [place] [address], * Iron and TIBC (10/26/2024 8:12 AM EDT) Iron 142 50 - 160 mcg/dL LAB CHEMISTRY METHOD 10/26/2024 10:16 AM EDT [facility] TIBC 309 250 - 450 mcg/dL LAB CHEMISTRY METHOD 10/26/2024 10:16 AM EDT [facility] Iron Saturation 46 20 - 50 % LAB CHEMISTRY METHOD 10/26/2024 10:16 AM EDT [facility] Blood Venous blood specimen / Unknown Venipuncture / Unknown 10/26/2024 8:12 AM EDT 10/26/2024 8:12 AM EDT us Logan Harris MD LAB BLOOD ORDERABLES Final R esult Performing Organization Address City/[facility]/ZIP Co de Phone Number [facility] [address] [place] [address], * Zinc (10/26/2024 8:12 AM EDT) Zinc 94 60 - 130 ug/dL 10/28/2024 9:37 AM EDT [facility] Comment: Elevated results may be due to sample collected in a non-certified trace element-free tube. This test was developed and the performance characteristics determined by [facility]. It has not been cleared or approved by the FDA. The laboratory is regulated under CLIA as qualified to perform high-complexity testing. This test is used for patient testing purposes. It should not be regarded as investigational or for research. Test performed at [facility], [address] , [place], [place] ??[address] ? [phone] Rosario Arreola MD, PhD - Price Clerk Blood Venous blood specimen / Unknown Venipuncture / Unknown 10/26/2024 8:12 AM EDT 10/26/2024 8:12 AM EDT us Logan Harris MD LAB BLOOD ORDERABLES Final R esult [facility] [address] [place] [address] * Vitamin D 25 hydroxy (10/26/2024 8:12 AM EDT) Vit D, 25-Hydroxy 34.7 30.0 - 80.0 ng/mL LAB CHEMISTRY METHOD 10/26/2024 12:40 PM EDT [facility] Blood Venous blood specimen / Unknown Venipuncture / Unknown 10/26/2024 8:12 AM EDT 10/26/2024 8:12 AM EDT us Logan Harris MD LAB BLOOD ORDERABLES Final R esult Performing Organization Address [facility] Co de Phone Number [facility] [address] [place] [address], [place] [phone] * Hemoglobin A1c (10/26/2024 8:12 AM EDT) [facility] Hemoglobin A1C 4.8 <6.5 % LAB CHEMISTRY METHOD 10/26/2024 10:19 AM EDT [facility] Mean Bld Glu Estim. 91 mg/dL LAB CHEMISTRY METHOD 10/26/2024 10:19 AM EDT [facility] Blood Venous blood specimen / Unknown Venipuncture / Unknown 10/26/2024 8:12 AM EDT 10/26/2024 8:12 AM EDT us Ara Davis MD LAB BLOOD ORDERABLES Final Re sult Performing Organization Address City/[facility]/ZIP Co de Phone Number [facility] [address] [place] [address], [place] [phone] * (ABNORMAL) Folate (10/26/2024 8:12 AM EDT) Folate 17.7(H) 2.8 - 17.0 ng/ml LAB CHEMISTRY METHOD 10/26/2024 10:38 AM EDT [facility] Blood Venous blood specimen / Unknown Venipuncture / Unknown 10/26/2024 8:12 AM EDT 10/26/2024 8:12 AM EDT us Logan Harris MD LAB BLOOD ORDERABLES Final R esult Performing Organization Address City/[facility]/ZIP Co de Phone Number [facility] [address] [place] [address], [place] [phone] * Ferritin (10/26/2024 8:12 AM EDT) Pathologist [facility] Ferritin 367 26 - 388 ng/mL LAB CHEMISTRY METHOD 10/26/2024 10:38 AM EDT [facility] Blood Venous blood specimen / Unknown Venipuncture / Unknown 10/26/2024 8:12 AM EDT 10/26/2024 8:12 AM EDT us Ara Davis MD LAB BLOOD ORDERABLES Final Re sult Performing Organization Address [facility]/ZIP Co de Phone Number [facility] [address] [place] [address], [place] [phone] * (ABNORMAL) Vitamin B12 (10/26/2024 8:12 AM EDT) Pathologist [facility] Vitamin B-12 949(H) 250 - 900 pcg/mL LAB CHEMISTRY METHOD 10/26/2024 10:38 AM EDT [facility] Blood Venous blood specimen / Unknown Venipuncture / Unknown 10/26/2024 8:12 AM EDT 10/26/2024 8:12 AM EDT us Ara Davis MD LAB BLOOD ORDERABLES Final Re sult [facility] [address] [place] [address], [place] [phone] * (ABNORMAL) Comprehensive metabolic panel (10/26/2024 8:12 AM EDT) Only the most recent of2 resultswithin the time period is included. Sodium 139 133 - 145 mmol/L LAB CHEMISTRY METHOD 10/26/2024 10:38 AM [facility] Potassium 3.9 3.5 - 5.5 mmol/L LAB CHEMISTRY METHOD 10/26/2024 10:38 AM [facility] Chloride 106 96 - 110 mmol/L LAB CHEMISTRY METHOD 10/26/2024 10:38 AM [facility] CO2 25 21 - 32 mmol/L LAB CHEMISTRY METHOD 10/26/2024 10:38 AM [facility] Anion Gap 8 3 - 11 LAB CHEMISTRY METHOD 10/26/2024 10:38 AM [facility] Glucose 80 70 - 100 mg/dL LAB CHEMISTRY METHOD 10/26/2024 10:38 AM [facility] BUN 17 5 - 25 mg/dL LAB CHEMISTRY METHOD 10/26/2024 10:38 AM [facility] Creatinine 0.62(L) 0.70 - 1.30 mg/dL LAB CHEMISTRY METHOD 10/26/2024 10:38 AM [facility] eGFR 116 >=60 mL/min/1. 73m2 LAB CHEMISTRY METHOD 10/26/2024 10:38 AM [facility] Comment:Calculation based on the Chronic Kidney Disease Epidemiology Collaboration (CKD-EPI) equation refit without adjustment for race. BUN/Creatinine Ratio 27.4 LAB CHEMISTRY METHOD 10/26/2024 10:38 AM [facility] Calcium 9.5 8.5 - 10.5 mg/dL LAB CHEMISTRY METHOD 10/26/2024 10:38 AM [facility] AST (SGOT) 22 10 - 42 unit/L LAB CHEMISTRY METHOD 10/26/2024 10:38 AM EDT [facility] ALT (SGPT) 26 10 - 60 unit/L LAB CHEMISTRY METHOD 10/26/2024 10:38 AM EDT [facility] Alkaline Phosphatase 65 42 - 121 unit/L LAB CHEMISTRY METHOD 10/26/2024 10:38 AM EDT [facility] Total Protein 7.5 6.0 - 8.0 g/dL LAB CHEMISTRY METHOD 10/26/2024 10:38 AM EDT [facility] Albumin 4.2 3.2 - 5.0 g/dL LAB CHEMISTRY METHOD 10/26/2024 10:38 AM EDT [facility] Total Bilirubin 1.3 0.0 - 1.4 mg/dL LAB CHEMISTRY METHOD 10/26/2024 10:38 AM EDT [facility] Blood Venous blood specimen / Unknown Venipuncture / Unknown 10/26/2024 8:12 AM EDT 10/26/2024 8:12 AM EDT Ara Davis MD LAB BLOOD ORDERABLES Final Re sult [facility] [address] [place] [address], [place] [phone] * Lipase (10/19/2024 7:01 PM EDT) Lipase 42 13 - 75 unit/L LAB CHEMISTRY METHOD 10/19/2024 8:40 PM EDT [facility] Blood Venous blood specimen / Unknown Venipuncture / Unknown 10/19/2024 7:01 PM EDT 10/19/2024 8:03 PM EDT us Aman Carlson DO LAB BLOOD ORDERABLES Final Res ult [facility] [address] [place] [address], [place] [phone] from Last 3 Months Insurance MEDICAID - [place] Care Teams Analytics Analyst Relationship Specialty Start Date End Date Ara Davis MD [address] PCP - General Internal Medicine 10/20/17
== END 2024-11-14 09:49 | disposition home or self-care (01) ==
LOC: HO.HOSX 09:48
PROVIDERS: Visit Provider Orthopaedic Surgery
DX: Z13.89 Encounter for screening for other disorder (principal)

== ENCOUNTER 2024-12-29 07:11 | Outpatient (REF) | payer MEDICAID, SELFPAY ==
--- NOTE | ~2024-12-29 | XR_ITS ---
EXAMINATION: XR SHOULDER, RIGHT CLINICAL INFORMATION: M25.511 - Pain in right shoulder COMPARISON: June 21, 2024. TECHNIQUE: AP external rotation, Grashey, scapular Y, and axillary views of the right shoulder. FINDINGS: Sclerosis along the greater tuberosity of the humerus. No acute cortical disruption or malalignment. No lytic or blastic lesions. XR/XR shoulder RT min 2V IMPRESSION: Mild degenerative changes at the supraspinatus tendon insertion. Electronically signed by: Teddy Mcdermott MD 12/29/2024 12:56 PM EDT
--- OUTSIDE RECORDS SUMMARY | 2024-12-29 07:14 | XMS_ITS | Clinical Summary ---
Author Organization [facility] Facility Address [address] [address] Care Team Providers Care Pin Puller Name Role Phone Ara Davis MD Primary Care Provider Allergies No known active allergies Medications fenofibrate (TRIGLIDE) 160 MG tablet Take 1 tablet by mouth 1 (one) time each day Active telmisartan (MICARDIS) 20 MG tablet Active ARIPiprazole (ABILIFY) 15 MG tablet Take 15 mg by mouth 1 (one) time each day 1 Active atorvastatin (LIPITOR) 20 MG tablet Take 20 mg by mouth 1 (one) time each day 1 Active Symbicort 160-4.5 MCG/ACT inhaler if needed 1 Active fluticasone (FLONASE) 50 MCG/ACT nasal spray 1 Active hydrOXYzine (VISTARIL) 50 MG capsule Take 50 mg by mouth 1 (one) time each day 1 Active prazosin (MINIPRESS) 2 MG capsule Take 2 mg by mouth 1 (one) time each day 1 Active sertraline (ZOLOFT) 100 MG tablet Take 100 mg by mouth 1 (one) time each day 1 Active traZODone (DESYREL) 100 MG tablet Take 100 mg by mouth 3 times a day 1 Active telmisartan-hyd roCHLOROthiazid e (MICARDIS HCT) 80-25 MG per tablet Take 1 tablet by mouth 1 (one) time each day 1 Active Multiple Vitamin (multivitamin) tablet Take 1 tablet by mouth 1 (one) time each day Active albuterol HFA (PROVENTIL HFA;VENTOLIN HFA) 108 (90 Base) MCG/ACT inhaler Inhale 2 puffs every 6 (six) hours if needed for wheezing Active amLODIPine (NORVASC) 10 MG tablet TOME RUFUS TABLETA TODOS LOS D 2 Active cetirizine (ZyrTEC) 10 MG tablet TOME RUFUS TABLETA POR V A ORAL EN LA MA DELMER 2 Active chlorhexidine (PERIDEX) 0.12 % solution RINSE TWICE DAILY DIRECTED WITH 15ML BY MOUTH FOR 30 SECONDS 2 Active Melatonin 5 MG tablet TOME RUFUS O DOS TABLETAS POR V A ORAL AL ACOSTARSE 2 Active metFORMIN XR (GLUCOPHAGE-XR) 500 MG 24 hr tablet TOME RUFUS TABLETA DOS VECES AL D A 2 Active omeprazole (PriLOSEC) [address] capsule TOME RUFUS C PSULA S LOS D 2 Active predniSONE (DELTASONE) 20 MG tablet TAJE 2 TABS DAILY FOR 4 DAYS 2 Active DentaGel 1.1 % gel USE DIRECTED BEFORE BED 2 Active triamcinolone (KENALOG) 0.5 % cream APLIQUE AL NEHEMIAS AFECTADA DOS VECES AL D A 2 Active buprenorphine-n aloxone (SUBOXONE) 8-2 MG per SL tablet Place 1 tablet under the tongue in the morning and 1 tablet in the evening. Active Active Problems Problem Noted Date Diagnosed Date Type 2 diabetes mellitus without complication Dyslipidemia 06/16/2022 Stage 3a chronic kidney disease 03/19/2022 Acute nontraumatic kidney injury 04/15/2021 Essential hypertension 04/15/2021 Large kidney 04/15/2021 Overweight 04/15/2021 Resolved Problems Problem Noted Date Diagnosed Date Resolved Date Chronic kidney disease 04/15/202104/17 Low back pain 04/15/2021 04/15/2021 Low blood pressure 04/15/2021 2 Family History Medical History Relation Comments Diabetes Father Hypertension Father Cancer Sibling Relation Status Comments Father Mother Alive Sibling Social History Tobacco Use Types Packs/Day Years Used Date Smoking Tobacco: Former Cigarettes Passive Smoke Exposure: Never Smokeless Tobacco: Never Tobacco Cessation:Counseling Given: No Alcohol Use Standard Drinks/Week Comments No 0 (1 standard drink = 0.6 oz pur e alcohol) Sex and Gender Information Value Date Recorded Sex Assigned at Not on file Legal Sex Male 11:00 AM EST Gender Identity Not on file Sexual Orientation Not on file Last Filed Vital Signs Vital Sign Reading Time Taken Comments Blood Pressure 140/74 03/19/2022 10:27 AM EDT Pulse 94 03/19/2022 10:27 AM EDT Temperature - - Respiratory Rate - - Oxygen Saturation 98% 03/19/2022 10:27 AM EDT Inhaled Oxygen Concentration - - Weight 146 kg (322 lb) 03/19/2022 10:27 AM EDT Height 193 cm (6' 4 ) 04/21/2019 12:00 PM EST Body Mass Index 39.2 04/21/2019 12:00 PM EST Plan of Treatment Health Maintenance Due Date Last Done Comments Hepatitis B Vaccine (1 of 3 - 19+ 3-dose series) 12/29 Pneumococcal Vaccine: 50+ Years (1 of 2 - PCV) 993 Diabetes: Hemoglobin A1C 06/16/2022 07/06/2018 Diabetes: Ophthalmology Exam 06/16/2022 Diabetes: Pedal Pulse Checked 06/16/2022 Diabetes: Sensory Foot Exam 06/16/2022 Diabetes: Visual Foot Exam 06/16/2022 Colorectal Cancer Screening: Annual FOBT 2022 Colorectal Cancer Screening: Colonoscopy 2022 Colorectal Cancer Screening: Sigmoidoscopy 2022 Influenza Vaccine (#1) 2025 Procedures Procedure Name Priority Date/Time Associated Diagnosis Comments BLOOD PANEL (HC) Routine 07/06/2018 12:0 0 AM EST from Last 3 Months or Most Recently Relevant to Health Maintenance Results * (ABNORMAL) Blood Panel (07/06/2018 12:00 AM EST) Sodium 138 137 - 145 mmol/L [facility] Potassium 4.2 3.5 - 5.1 mmol/L [facility] BUN 18 9 - 20 mg/dl [facility] Hemoglobin A1C 6.2(H) <5 % [facility] Calcium 9.4 8.4 - 10.2 mg/dl [facility] eGFR Non- >60 >60 ml/min [facility] Carbon Dioxide (CO2) 25 22 - 30 mmol/L [facility] Creatinine 1.16 0.70 - 1.30 mg/dl [facility] 07/06/2018 [facility] [id number] LICITED RESULTS Final Result [facility] from Last 3 Months or Most Recently Relevant to Health Maintenance Insurance Care Teams Pin Puller Relationship Specialty Start Date End Date Ara Davis MD [address] [place] [address] PCP - General 06/11/20
--- OUTSIDE RECORDS SUMMARY | 2024-12-29 07:14 | XMS_ITS | Patient Health Record ---
Author Organization [facility] Address [address] [place] [phone] Care Team Providers Care Pig Iron Loader Name Role Phone Ara Davis Primary Care Provider Unavailab Everett Chaves Unavailable [phone] Reason For Referral No Information Medications Medication SIG (Take, Route, Frequency, Duration) Notes Start Date End Date Status Sertraline HCl 100 MG TAKE 1 1/2 TABS BY MOUTH ONCE DAILY Oral for 30 Active ProAir HFA Active Omeprazole 20 MG TAKE 1 CAPSULE BY MO UTH DAILY Oral for 30 Active MiraLax (colon prep) 8.3 ounce ((238) grams mixed with Gatorade or Crystal Light orally begin at 5:00 p.m. the day before the procedure for 1 day 09/05/2017 Active Dulcolax (colon prep) 5 MG take at 3:00 p.m and 7:00p.m. Orally two tablets twice a day for one day for 1 day 09/05/2017 Active KlonoPIN Active Losartan Potassium-HCTZ Active Fenofibrate Active Divalproex Sodium Ac tive QUEtiapine Fumarate Active Social History Tobacco Use: Social History Observation Description Date Details (start date - stop date) Current Smoker NA - NA Tobacco Use/Smoking Question Answer Notes Patient is a current smoker How often do you smoke cigarettes? some days, bu t not every day How many cigarettes a day do you smoke? 5 or les s How soon after you wake up d o you smoke your first cigarette? after 60 minutes Are you interested in quitting? Thinking about q uitting Section Notes: Former IVDA--abstinent since approx 2005; smokes 2 cigarettes QD; no sig alcohol Former IVDA--abstinent since approx 2005; smokes 2 cigarettes QD; no sig alcohol Problems Problem Type SNOMED Code ICD Code Onset Dates Problem Status W/U Status Risk Notes Problem 195240923 Encounter for screening for malignant neoplasm of colon (Z12.11) Active confirmed Problem Screening for malignant neoplasm of rectum (818984744) Encounter for screening for malignant neoplasm of rectum (Z12.12) Active confirmed Problem 356428344 Elevated liver enzymes (R74.8) Active confirmed Problem 989760511 Gastroesophageal reflux disease, esophagitis presence not specified (K21.9) Active confirmed Problem 756036664 Family history o f colon cancer (Z80.0) Active confirmed Plan Of Treatment Pending Test Test Name Order Date CERULOPLASMIN 04/11/2016 Future Test Test Name Order Date UPPER GI ENDOSCOPY 04/11/2016 COLONOSCOPY 04/11/2016 UPPER GI ENDOSCOPY 09/02/2017 COLONOSCOPY 09/02/2017 Insurance Providers Payer Name Payer Address Payer Phone Subscriber Number Group Number Insured Name Patient Relationship to Insured Coverage Start Date Coverage End Date [facility] [address] [address] [place], [place] [id number] TONE LARSEN Self - patient is the insured MEDICAID OF [facility] [address] [place] [address] [id number] TONE LARSEN Self - patient is the insured Medical (General) History Medical History History ICD Code Hypertension Asthma Hepatitis C--reported + antibody, but ne g viral load Sleep apnea-uses CPAP Denies [place],DM,CVA,renal disease GERD Depresssion and anxiety Hyperlipidemia Elevated liver tests--neg. w /u in 2016---fatty liver--minimal elevations in 2016 Surgical History Surgery Date(Month/Year) hernia repair-umbilical 2011 cholecystectomy 2011 right knee arthroscopy 2013
--- OUTSIDE RECORDS SUMMARY | 2024-12-29 07:14 | XMS_ITS | Clinical Summary ---
Author Organization [facility] [facility] Address [address] [place] [address] Care Team Providers Care Gasoline Catalyst Operator Name Role Phone Merna Ziegler MD Primary Care Pro vider Allergies No known active allergies Medications * This document contains information received from the source organization and may not represent a complete record from that organization. ARIPiprazole (Abilify) 15 MG tablet Take 15 mg by mouth in the morning. Active sertraline (Zoloft) 100 MG tablet Take 200 mg by mouth in the morning. Active traZODone (Desyrel) 150 MG tablet Take 150 mg by mouth at bedtime. Active naloxone (Narcan) 4 mg/0.1 mL nasal spray TAKE 1 SPRAY BY NASAL ROUTE NEEDED FOR 1 DAY. 3 Active atorvastatin (Lipitor) 20 MG tablet TOME RUFUS TABLETA TODOS LOS D Active Omeprazole 20 MG tablet delayed-release Indications:Chr onic GERD Take 20 mg by mouth in the morning. 90 tablet 4 Active albuterol 108 (90 Base) MCG/ACT inhaler Inhale 2 puffs every 6 (six) hours if needed for wheezing. 18 g 2 4 Active amLODIPine (Norvasc) 10 MG tablet Take 1 tablet (10 mg) by mouth in the morning. 90 tablet 4 Active famotidine (Pepcid) 40 MG tablet TOME RUFUS TABLETA POR V A ORAL AL ACOSTARSE 90 tablet 4 Active Buprenorphine HCl-Naloxone HCl (Suboxone) 8-2 MG SL filmIndications :Uncomplicated opioid dependence (CMS/HCC) Place 1 Film under the tongue 2 times daily for 21 days. 42 Film 4 Active Active Problems Problem Noted Date Diagnosed Date Health care maintenance 07/29/2023 HTN (hypertension) 07/29/2023 Bipolar 1 disorder 07/29/2023 History of tobacco use 07/29/2023 GERD (gastroesophageal reflux disease) Congenital varus deformity of knee 07/29/2023 Asthma 07/29/2023 Moderate opioid use disorder, in sustained remis nicole 06/22/2023 Severe major depression without psychotic featur es 06/22/2023 KARLIE (generalized anxiety disorder) 06/22/2023 Family History Medical History Relation Name Comments Schizophrenia Brother colon cancer 33 y of age Brother Colon cancer Mother's Brother brain tumor Mother's Sister Leukemia Paternal Grandfather Autism Son Relation Name Status Comments Brother Mother's Brother Mother's Sister Paternal Grandfather Son Social History Tobacco Use Types Packs/Day Years Used Date Smoking Tobacco: Former Cigarettes Q uit: 07/25/2020 Passive Smoke Exposure: Past Comments:Started tobacco smo saumya 14 y and stopped 45 y of age -used to smoke 1 PQT a day ,smoked for 31 y PQT a year calc 29-will need to start lung ca screening at 48 y of age give stopped smoking 2 y ago Alcohol Use Standard Drinks/Week Comments Not Currently 0 (1 standard drink = 0.6 oz pur e alcohol) Depression Answer Date Recorded Patient Health Questionnaire-9 Score 11 07/29/2023 Patient Health Questionnaire-9 Score 11 07/29/2023 Last PHQ-9: Questionnaire Data Not on file 0 07/29/2023 Housing Stability Answer Date Recorded What is your housing situation today? I have marlena lisa 07/21/[address] you li ve. Do you have problems with any of the following? None of the above 07/21/2023 Food Insecurity Answer Date Recorded Within the past 12 months, y ou worried that your food would run out before you got money to buy more: Often true 07/21/2023 Within the past 12 months,th e food you bought just didn't last and you didn't have enough money to get more: Often true Transportation Answer Date Recorded In the past 12 months, has l ack of transportation kept you from medical appts, meetings, work or from getting things needed for daily living? No 07/21/2023 Utilities Answer Date Recorded In the past 12 months, has t he electric, gas, oil or water company threatened to shut off services in your home? No 07/21/2023 Depression Answer Date Recorded Patient Health Questionnaire-2 Score 4 07/29/2023 Sex and Gender Information Value Date Recorded Sex Assigned at Male 06/04/2023 10:17 AM EST Legal Sex Male 1:51 PM EST Gender Identity Male 06/04/2023 10:17 AM EST Sexual Orientation Straight 06/04/2023 10 :17 AM EST Last Filed Vital Signs Vital Sign Reading Time Taken Comments Blood Pressure 106/69 07/29/2023 9:34 AM EST Pulse 84 07/29/2023 9:34 AM EST Temperature - - Respiratory Rate 20 07/29/2023 9:34 AM EST Oxygen Saturation 97% 07/29/2023 9:34 AM EST Inhaled Oxygen Concentration - - Weight 87.1 kg (192 lb) 07/29/2023 9:34 AM EST Height 193 cm (6' 4 ) 07/29/2023 9:34 AM EST Body Mass Index 23.37 07/29/2023 9:34 AM EST Plan of Treatment Health Maintenance Due Date Last Done Comments CT Colonography 1973 Colonoscopy 1973 Colorectal Cancer Screening 1973 FIT DNA/Cologuard 1973 FIT 1973 FOBT 1973 Lipid Panel 1973 Sigmoidoscopy 1973 Disability Screening 1973 Alcohol/Substance Use Screening 1985 Family Planning (PISQ) 1988 DTaP/Tdap/Td Vaccines (1 - Tdap) 1992 Pneumococcal Vaccine: 50+ Years (1 of 2 - PCV) 1992 Hepatitis B Vaccines (3 of 3 - 19+ 3-dose series) 11/08/2015 09/13/2015, 06/15/2013, 11/11/2012 Zoster Vaccines (1 of 2) 12/30/2023 Depression Monitoring 01/27/2024 07/29/2023 , 07/29/2023 COVID-19 Vaccine (3 - 2023-2 5 season) 2024 02/19/2021, 01/29/2021 SDOH Screening 07/21/2024 07/21/2023 Tobacco Screening 07/29/2024 07/29/2023 Influenza Vaccine (#1) 2025 0, 09/12/2015 RSV Patients and Patients Aged 60 years or older (1 - 1-dose 75+ series) 2048 HIV Screening Completed 06/12/2023 Hepatitis C Screening Completed 06/12/2023 , 06/12/2023 HIB Vaccines Aged Out No longer [...] patient's age to complete this topic Meningococcal Vaccine Aged Out No pinky suad eligible based on patient's age to complete this topic RSV under 20 months Aged Out No longe r eligible based on patient's age to complete this topic Rotavirus Vaccines Aged Out No longer eligible based on patient's age to complete this topic Procedures Procedure Name Priority Date/Time Associated Diagnosis Comments HEPATITIS C AB W/REFL TO HCV RNA, QN, PCR Routine 06/12/2023 11:46 AM EST Uncomplicated opioid dependence (CMS/HCC) HIV 1/2 ANTIGEN/ANTIBODY, FOURTH GENERATION W/RFL Routine 06/12/2023 11:46 AM EST Uncomplicated opioid dependence (CMS/HCC) from Last 3 Months or Most Recently Relevant to Health Maintenance Results * (ABNORMAL) Hepatitis C Antibody with Reflex to HCV, RNA, Quantitative, Real- Time PCR (06/12/2023 11:46 AM EST) Hepatitis C Antibody Reactive( A) Nonreactive [facility] Comment:Presumptive evidence of antibodies to HCV. Blood Venous blood specimen / Unknown 06/12/2023 11:46 AM EST 06/12/2023 1:09 PM EST us Kashif Bejarano MD LAB BLOOD ORDERABLES Final Res ult Performing Organization Address City/[facility]/ZIP Co de Phone Number [facility] [address] [place] [address] [phone] * HIV-1/2 Antigen and Antibodies, Fourth Generation, with Reflexes (06/12/2023 11:46 AM EST) HIV AB/AG Nonreactive Nonreactive [facility] Comment:HIV-1 p24 Ag and/or HIV-1/HIV-2 Ab not detected.A test result that is nonreactive does not exclude thepossibility of exposure to or infection with HIV-1 and/orHIV-2. Nonreactive results in this assay for individualswith prior exposure to HIV-1 and/or HIV-2 may be due toantigen and antibody levels that are below the limit ofdetection of this assay.The [employer] HIV Ag/Ab Combo assay result andsupplemental assay results should be interpreted inconjunction with the patient's clinical presentation,history and other laboratory results. If the results areinconsistent with clinical evidence, additional testing issuggested to confirm the result. Blood Venous blood specimen / Unknown 06/12/2023 11:46 AM EST 06/12/2023 1:09 PM EST us Kashif Bejarano MD LAB BLOOD ORDERABLES Final Res ult Performing Organization Address [facility] Co de Phone Number [facility] [address] [place] [address] [phone] from Last 3 Months or Most Recently Relevant to Health Maintenance Insurance [facility] STANDARD Care Teams Gasoline Catalyst Operator Relationship Specialty Start Date End Date Merna Ziegler MD [address] [place] [id number] PCP - General Internal Medicine 08/11/23
== END 2024-12-29 07:12 | disposition home or self-care (01) ==
LOC: HO.HOSX 07:11
PROVIDERS: Visit Provider Orthopaedic Surgery
DX: M77.8 Other enthesopathies, not elsewhere classified (principal); M25.511 Pain in right shoulder; Z79.899 Other long term (current) drug therapy
CPT/HCPCS: 20610; 73030; 99212; J1010; J2003

== ENCOUNTER 2024-12-29 12:22 | Outpatient (AMB) | payer MEDICAID, SELFPAY ==
--- NOTE | 2024-12-29 12:58 | A.OFFVIS_ITS ---
Vital Signs 12/29/24 12:59 Height 6 ft 4 in Weight 180 lb BMI 21.9 Intake Visit Reasons: New Problem - Right Shoulder Pain Intake Note: Fernando is a 48 year old male who presents today for a new problem visit for his right shoulder pain. States his pain started about 8-9 months. No injury he can recall. He reports pain in anterior aspect of arm, limited ROM, pain with mov ement and radiates all around his shoulder. Patient has tried and failed injections and P.T in the past with no relief. Denies numbness or tingling in hands. Hx of pre diabetic Creative Designer Name: Tasha VALA/ASHLEY Allergies No Known Allergies Allergy (Verified 12/29/24 13:03) Medication List - Last Reconciled 12/29/24 by Blair Rao PA-C aripiprazole 15 mg PO DAILY atorvastatin 20 mg PO DAILY buprenorphine-naloxone 8-2 mg (Suboxone) 10 mg sublingual BID famotidine 40 mg PO BEDTIME metformin 500 mg PO BID sertraline 200 mg PO DAILY trazodone 200 mg PO BEDTIME PRN HPI HPI New Problem - Right Shoulder Pain: Details: 49 yo male presents to the office today for ongoing right shoulder pain. He states the pain has been presents for about 8-9 months. He denies injury. He states he did have an injection in the left shoulder, but never the right. He states activities that limit him are sleeping and raising the arm. Denies PT or other treatment options. 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 There is also some muscle wasting along the posterior aspect of the shoulder. Forward flexion to 90 degrees. External rotation to 90. Internal rotation to back pocket. He does have some pain with rotator cuff strength testing and significant weakness with belly press. Office Procedures AMB Joint Injection/Aspiration Joint Injection/Aspiration Primary Site: right shoulder Prep: site was prepped using aseptic technique, ethochloride spray was applied and injection warnings given Injected: 40 mg of, DepoMedrol, with 8 mL of, 1% plain lidocaine and in the subcromial space Approach Used: posterolateral Procedure: The patient tolerated the procedure well and there was some relief with the local anesthesia Coding 84952 - Glenohumeral/Tronchanteric Bursa/Intraarticular Procedure code (CPT) selection complete Results Reviewed Results Reviewed: Xrays were obtained in the office today and personally reviewed by me of the right shoulder show type 2 acromion. Assessment & Plan Assessment & Plan (1) Right shoulder tendinitis: Code(s): M77.8 - Other enthesopathies, not elsewhere classified Category: Medical Plan We discussed options today which includes physical therapy which she has already participated in with minimal relief. I did discuss steroid injection which could help with his discomfort which she did elect to proceed with today. Patient did tolerate right shoulder injection well. I also ordered an MRI of the right shoulder to further evaluate the integrity of the rotator cuff given his physical exam and atrophy. Once the scan is complete I will contact the patient to discuss the next step in his treatment. Orders: Orders XR shoulder RT min 2V Today M25.511 - Pain in right shoulder MR shoulder RT wo con Today M77.8 - Other enthesopathies, not elsewhere classified Coding Level of Care Code Est Pt Level 3 (57736) Complex EM visit Add On G2211 Diagnoses Right shoulder tendinitis M77.8 CPT Codes Coding - Joint 7: 46611 - Glenohumeral/Tronchanteric Bursa/Intraarticular ([id number])
[2024-12-29 12:59] VITALS: BMI 21.9
== END 2024-12-29 13:36 | disposition home or self-care (01) ==
PROVIDERS: PCP Internal Medicine; Visit Provider Physician Assistant
DX: M77.8 Other enthesopathies, not elsewhere classified (principal)
CPT/HCPCS: 20610; 99213

== ENCOUNTER → 2024-12-29 12:47 | Outpatient (BNV) | payer MEDICAID, SELFPAY | PROVIDERS: Visit Provider Radiology Diagnostic Radiology | DX: M75.31 Calcific tendinitis of right shoulder (principal) | CPT/HCPCS: 73030 ==

== ENCOUNTER 2025-02-18 10:02 | Outpatient (REF) | payer MEDICAID, SELFPAY ==
--- OUTSIDE RECORDS SUMMARY | 2025-02-18 10:06 | XMS_ITS | Clinical Summary ---
Author Organization [employer] Address [address] [place] [address] Care Team Providers Care Maintenance And Engineering Manager Name Role Phone Unavailable Primary Care Provider Unavailabl e Allergies No known active allergies Medications * [...] 12/30/2023 Depression Monitoring 01/27/2024 07/29/2023 , 07/29/2023 SDOH Screening 07/21/2024 07/21/2023 Tobacco Screening 07/29/2024 07/29/2023 COVID-19 Vaccine (3 - 2024-2 6 season) 2025 02/19/2021, 01/29/2021 Influenza Vaccine (#1) 2025 0, 09/12/2015 RSV [...] EST) Hepatitis C Antibody Reactive( A) Nonreactive [facility] Comment:Presumptive evidence of antibodies to HCV. Blood Venous blood specimen / Unknown 06/12/2023 11:46 AM EST 06/12/2023 1:09 PM EST us Kashif Bejarano MD LAB BLOOD ORDERABLES Final Res ult [facility] [address] [place] [phone] [phone] * HIV-1/2 Antigen and Antibodies, Fourth Generation, with Reflexes (06/12/2023 11:46 AM EST) HIV AB/AG Nonreactive Nonreactive [facility] Comment:HIV-1 p24 Ag and/or HIV-1/HIV-2 Ab not detected.A test result that is nonreactive does not exclude thepossibility of exposure to or infection with HIV-1 and/orHIV-2. Nonreactive results in this assay for individualswith prior exposure to HIV-1 and/or HIV-2 may be due toantigen and antibody levels that are below the limit ofdetection of this assay.The [employer] HIV Ag/Ab Combo assay result andsupplemental assay results should be interpreted inconjunction with the patient's clinical presentation,history and other laboratory results. If the results areinconsistent with clinical evidence, additional testing issuggested to confirm the result. Blood Venous blood specimen / Unknown 06/12/2023 11:46 AM EST 06/12/2023 1:09 PM EST us Kashif Bejarano MD LAB BLOOD ORDERABLES Final Res ult [facility] [address] [place] [address] [phone] from Last 3 Months or Most Recently Relevant to Health Maintenance Insurance [facility] [employer]
--- OUTSIDE RECORDS SUMMARY | 2025-02-18 10:06 | XMS_ITS | Patient Health Record ---
Author Organization [facility] Address [address] [place] [phone] Care Team Providers Care Trip Motor Operator Name Role Phone Ara Davis Primary Care Provider Unavailab Everett Chaves Unavailable [phone] Reason For Referral No Information Medications Medication [...] Problem Status W/U Status Risk Notes Problem 467427345 Encounter for screening for malignant neoplasm of colon (Z12.11) Active confirmed Problem Screening for malignant neoplasm of rectum (935266628) Encounter for screening for malignant neoplasm of rectum (Z12.12) Active confirmed Problem 104036216 Elevated liver enzymes (R74.8) Active confirmed Problem 655616942 Gastroesophageal reflux disease, esophagitis presence not specified (K21.9) Active confirmed Problem 048425791 Family history o f colon cancer (Z80.0) Active confirmed Plan Of Treatment Pending Test Test Name Order Date CERULOPLASMIN 04/11/2016 Future Test Test Name Order Date UPPER GI ENDOSCOPY 04/11/2016 COLONOSCOPY 04/11/2016 UPPER GI ENDOSCOPY 09/02/2017 COLONOSCOPY 09/02/2017 Insurance Providers Payer Name Payer Address Payer Phone Subscriber Number Group Number Insured Name Patient Relationship to Insured Coverage Start Date Coverage End Date [facility] [address] [address] [place], [place] [id number] TONE LARSEN Self - patient is the insured MEDICAID OF [facility] [address] [place] [address] [id number] TONE LARSEN Self - patient is the insured Medical (General) History Medical History History ICD Code Hypertension Asthma Hepatitis C--reported + antibody, but ne g viral load Sleep apnea-uses CPAP Denies [place],DM,CVA,renal disease GERD Depresssion and anxiety Hyperlipidemia Elevated liver tests--neg. w /u in 2016---fatty liver--minimal elevations in 2016 Surgical History Surgery Date(Month/Year) hernia repair-umbilical 2011 cholecystectomy 2011 right knee arthroscopy 2013
--- OUTSIDE RECORDS SUMMARY | 2025-02-18 10:06 | XMS_ITS | Clinical Summary ---
Author Organization [facility] Address [address] [address] Care Team Providers Care Paperhanger Supervisor Name Role Phone Ara Davis MD Primary [...] 1.30 mg/dl RTAMA 07/06/2018 [facility]version LAB [id number] LICITED RESULTS Final Result RTAMA from Last 3 Months or Most Recently Relevant to Health Maintenance Insurance Care Teams Paperhanger Supervisor Relationship Specialty Start Date End Date Ara Davis MD [address] [place] [address] PCP - General 06/11/20
--- OUTSIDE RECORDS SUMMARY | 2025-02-18 10:06 | XMS_ITS | Clinical Summary ---
Author Organization [address] [place] [address] Address [address] [place] [address] Phone Care Team Providers Care Manager Customer Service Name Role Phone Ara Davis MD Primary Care Provider [phone] Allergies Active Allergy Reactions Criticality Noted Date Comments Latex Hives 10/11/2024 Medications No known medications Active Problems Problem Noted Date Diagnosed Date GERSON treated with BiPAP Overview (10/19/2024): DX:GERSON treated with BiPAP Surgical History Surgery Date Site/Laterality Comments HERNIA [...] 67 10/19/2024 11:52 PM EDT Temperature 36.4 C (97.5 F) 10/19/2024 11:52 PM EDT Respiratory Rate 18 10/19/2024 11:52 PM EDT Oxygen Saturation 97% 10/19/2024 11:52 PM EDT Inhaled Oxygen Concentration - - Weight 82.6 kg (182 lb) 10/19/2024 6:34 PM EDT Height 193 cm (6' 4 ) 10/19/2024 6:34 PM EDT Body Mass Index 22.15 10/19/2024 6:34 PM EDT Plan of Treatment Upcoming Encounters Date Type Department Care Team (Late st Contact Info) Description 02/21/2025 10:45 AM EDT Office Visit Bariatric Surgery - [place] [address] [place] [address] Logan Harris MD [address] [place] [phone] Health Maintenance Due Date Last Done Comments [...] 05/10/2022 Zoster Vaccines (1 of 2) 12/30/2023 Depression Screening 06/01/2024 Diabetes: Annual Urine Albumin-Creatinine Ratio (uACR) 10/20/2024 COVID-19 Vaccine (3 - 2024-2 6 season) 2025 02/19/2021, 01/29/2021 Influenza Vaccine (#1) 2025 , 09/12/2015 Diabetes: Blood Sugar Contro l Test [...] Procedure Name Priority Date/Time Associated Diagnosis Comments COMPREHENSIVE METABOLIC PANEL Routine 10/26/2024 8:12 AM EDT Diabetes mellitus ([facility] V24, [facility] V28) Adhesive bursitis of right shoulder Loss of weight Bariatric surgery status HEMOGLOBIN A1C Routine 10/26/2024 8:12 AM EDT Diabetes mellitus ([facility] V24, [facility] V28) Adhesive bursitis of right shoulder Loss of weight Bariatric surgery status from Last 3 Months or Most Recently Relevant to Health Maintenance Results * Hemoglobin A1c (10/26/2024 8:12 AM EDT) Hemoglobin A1C 4.8 <6.5 % LAB CHEMISTRY METHOD 10/26/2024 10:19 AM EDT [facility] Mean Bld Glu Estim. 91 mg/dL LAB CHEMISTRY METHOD 10/26/2024 10:19 AM EDT [facility] Blood Venous blood specimen / Unknown Venipuncture / Unknown 10/26/2024 8:12 AM EDT 10/26/2024 8:12 AM EDT Ara Davis MD LAB BLOOD ORDERABLES Final Re sult [facility] [address] [place] [address], * (ABNORMAL) Comprehensive metabolic panel (10/26/2024 8:12 AM EDT) Sodium 139 133 - 145 mmol/L LAB CHEMISTRY METHOD 10/26/2024 10:38 AM [facility] Potassium 3.9 3.5 - 5.5 mmol/L LAB CHEMISTRY METHOD 10/26/2024 10:38 AM [facility] Chloride 106 96 - 110 mmol/L LAB CHEMISTRY METHOD 10/26/2024 10:38 AM [facility] CO2 25 21 - 32 mmol/L LAB CHEMISTRY METHOD 10/26/2024 10:38 AM [facility] Anion Gap 8 3 - 11 LAB CHEMISTRY METHOD 10/26/2024 10:38 AM [facility] Glucose 80 70 - 100 mg/dL LAB CHEMISTRY METHOD 10/26/2024 10:38 AM [facility] BUN 17 5 - 25 mg/dL LAB CHEMISTRY METHOD 10/26/2024 10:38 AM [facility] Creatinine 0.62(L) 0.70 - 1.30 mg/dL LAB CHEMISTRY METHOD 10/26/2024 10:38 AM [facility] eGFR 116 >=60 mL/min/1. 73m2 LAB CHEMISTRY METHOD 10/26/2024 10:38 AM [facility] Comment:Calculation based on the Chronic Kidney Disease Epidemiology Collaboration (CKD-EPI) equation refit without adjustment for race. BUN/Creatinine Ratio 27.4 LAB CHEMISTRY METHOD 10/26/2024 10:38 AM [facility] Calcium 9.5 8.5 - 10.5 mg/dL LAB CHEMISTRY METHOD 10/26/2024 10:38 AM EDT [facility] AST (SGOT) 22 10 - 42 unit/L LAB CHEMISTRY METHOD 10/26/2024 10:38 AM EDT [facility] ALT (SGPT) 26 10 - 60 unit/L LAB CHEMISTRY METHOD 10/26/2024 10:38 AM EDT [facility] Alkaline Phosphatase 65 42 - 121 unit/L LAB CHEMISTRY METHOD 10/26/2024 10:38 AM EDT [facility] Total Protein 7.5 6.0 - 8.0 g/dL LAB CHEMISTRY METHOD 10/26/2024 10:38 AM EDT [facility] Albumin 4.2 3.2 - 5.0 g/dL LAB CHEMISTRY METHOD 10/26/2024 10:38 AM T [facility] Total Bilirubin 1.3 0.0 - 1.4 mg/dL LAB CHEMISTRY METHOD 10/26/2024 10:38 AM EDT [facility] Blood Venous blood specimen / Unknown Venipuncture / Unknown 10/26/2024 8:12 AM EDT 10/26/2024 8:12 AM EDT Ara Davis MD LAB BLOOD ORDERABLES Final Re sult [facility] [address] [place] [address], from Last 3 Months or Most Recently Relevant to Health Maintenance Insurance MEDICAID - [place] Care Teams Manager Customer Service Relationship Specialty Start Date End Date Ara Davis MD [address] [facility] [address] [place], [place] PCP - General Internal Medicine 10/20/17
--- OUTSIDE RECORDS SUMMARY | 2025-02-18 10:06 | XMS_ITS | Encounter Summary ---
Author Organization [facility] Address [address] [place] [address] Care Team Providers Care Nurse'S Companion Name Role Phone Ara Davis MD Primary Care Provider Encounter Details Date Type Department Care Team (Late Contact Info) Description 11/07/2024 Lab Requisition [facility] [address] [facility] [place] [address] Ara Davis MD [address] [place] [address] [place] [id number] Benign prostatic hyperplasia without lower urinary tract symptoms; Type 2 diabetes mellitus without complications (CMS/HCC V24, CMS/HCC V28) Social History Tobacco Use Types Packs/Day Years Used Date Smoking Tobacco: Former Smokeless Tobacco: Never Alcohol Use Standard Drinks/Week Comments No 0 (1 standard drink = 0.6 oz pur e alcohol) Sex and Gender Information Value Date Recorded Sex Assigned at Not on file Legal Sex Male 2:14 AM EST Gender Identity Not on file Sexual Orientation Not on file documented as of this encounter Plan of Treatment Upcoming Encounters Date Type Department Care Team (Late Contact Info) Description 02/21/2025 10:45 AM EDT Office Visit Bariatric Surgery - [place] [address] [facility] [address] [place] [address] Logan Harris MD [address] [place] [phone] Scheduled Orders Name Type Priority Associated Diagnoses Orde r Schedule Prostate specific antigen screen Lab Routine Benign prostatic hyperplasia without lower urinary tract symptoms Ordered: 11/07/2024 Microalbumin creatinine urine ratio Lab Routine Type 2 diabetes mellitus without complications ([facility] V24, [facility] V28) Ordered: 11/07/2024 documented as of this encounter Visit Diagnoses Diagnosis Benign prostatic hyperplasia without lower urinary tract symptoms Type 2 diabetes mellitus without complications ([facility] V24, [facility] V28) documented in this encounter Care Teams Nurse'S Companion Relationship Specialty Start Date End Date Ara Davis MD [facility] [address] PCP - General Internal Medicine 10/20/17 documented as of this encounter
== END 2025-02-18 10:03 | disposition home or self-care (01) ==
LOC: HO.MRI 10:02
PROVIDERS: Visit Provider Physician Assistant
DX: M77.8 Other enthesopathies, not elsewhere classified (principal)
CPT/HCPCS: 73221

== ENCOUNTER → 2025-02-18 10:02 | Outpatient (BNV) | payer MEDICAID, SELFPAY | PROVIDERS: Visit Provider Radiology Diagnostic Radiology | DX: M25.511 Pain in right shoulder (principal); M77.8 Other enthesopathies, not elsewhere classified | CPT/HCPCS: 73221 ==

== ENCOUNTER 2025-03-23 11:16 | Outpatient (AMB) | payer MEDICAID, SELFPAY ==
--- NOTE | 2025-03-23 11:32 | A.OFFVIS_ITS ---
Vital Signs 03/23/25 11:35 Height 6 ft 4 in Weight 180 lb BMI 21.9 Intake Visit Reasons: OV- MRI review of Right Shoulder Pain Intake Note: Fernando is a 48 year old male who presents today for an MRI review of his right shoulder At his last visit on 12/29/24 he was given an injection and an MRI was ordered. Today patient reports that he was unable to complete the MRI fully, due to being claustophobic. Nurse'S Aides Teacher Required: Yes Nurse'S Aides Teacher Services: Nurse'S Aides Teacher Present Nurse'S Aides Teacher Name: Ronda Spivey ID#[id number] Allergies No Known Allergies Allergy (Verified 03/23/25 11:35) Medication List - Last Reconciled 03/23/25 by Blair Rao PA-C aripiprazole 15 mg PO DAILY atorvastatin 20 mg PO DAILY buprenorphine-naloxone 8-2 mg (Suboxone) 10 mg sublingual BID celecoxib (Celebrex) 200 mg PO BID 30 days famotidine 40 mg PO BEDTIME metformin 500 mg PO BID sertraline 200 mg PO DAILY trazodone 200 mg PO BEDTIME PRN HPI HPI OV- MRI review of Right Shoulder Pain: Details: 49-year-old gentleman returns to the office today for follow up of his MRI however the MRI had to be aborted due to claustrophobia. Patient continues to have right shoulder pain which is worse with reaching and repetitive motion. He also has difficulty reaching behind his back. 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 There is also some muscle wasting along the posterior aspect of the shoulder. Forward flexion to 90 degrees. External rotation to 90. Internal rotation to back pocket. He does have some pain with rotator cuff strength testing and significant weakness with belly press. Assessment & Plan Assessment & Plan (1) Right shoulder tendinitis: Code(s): M77.8 - Other enthesopathies, not elsewhere classified Category: Medical Plan: I placed an order for an open MRI of the right shoulder so we can further evaluate the integrity of the rotator cuff given his continued limitations and pain. I also sent a prescription for Celebrex to the pharmacy to take twice a day to help with his pain. Once the scan is complete I will contact him to discuss follow up. Orders: Orders MR shoulder RT wo con Today M77.8 - Other enthesopathies, not elsewhere classified Medications: New celecoxib (Celebrex) 200 mg PO BID 60 caps 3RF 30 days Coding Level of Care Code Est Pt Level 3 (15439) Complex EM visit Add On G2211 Diagnoses Right shoulder tendinitis M77.8
[2025-03-23 11:35] VITALS: BMI 21.9
--- OUTSIDE RECORDS SUMMARY | 2025-03-23 14:18 | XMS_ITS | Clinical Summary ---
Author Organization [facility] Facility Address [address] [address] Care Team Providers Care Bag Machine Operator Helper Name Role Phone Ara Davis MD Primary [...] 1.30 mg/dl RTAMA 07/06/2018 [facility] [id number] LICITED RESULTS Final Result RTAMA from Last 3 Months or Most Recently Relevant to Health Maintenance Insurance Care Teams Bag Machine Operator Helper Relationship Specialty Start Date End Date Ara Davis MD [address] [place] [address] PCP - General 06/11/20
--- OUTSIDE RECORDS SUMMARY | 2025-03-23 14:18 | XMS_ITS | Encounter Summary ---
Author Organization [employer] Address [address] [place] [address] Care Team Providers Care Lozenge Dough Mixer Name Role Phone Ara Davis MD Primary Care Provider [phone] Encounter Details Date Type Department Care Team (Late st Contact Info) Description 11/07/2024 Lab Requisition [facility] [address] [facility] [place] [address] Ara Davis MD [address] [place] [address] [place] [id number] Benign prostatic hyperplasia without lower urinary tract symptoms; Type 2 diabetes mellitus without complications ([facility] V24, [facility] V28) Social History Tobacco Use Types Packs/Day [...] as of this encounter Plan of Treatment Scheduled Orders Name Type Priority Associated Diagnoses Orde r Schedule Prostate specific antigen screen Lab Routine Benign prostatic hyperplasia without lower urinary tract symptoms Ordered: 11/07/2024 Microalbumin creatinine urine ratio Lab Routine Type 2 diabetes mellitus without complications ([facility] V24, [facility] V28) Ordered: 11/07/2024 documented as of this encounter Visit Diagnoses Diagnosis Benign prostatic hyperplasia without lower urinary tract symptoms Type 2 diabetes mellitus without complications ([facility] V24, [facility] V28) documented in this encounter Care Teams Lozenge Dough Mixer Relationship Specialty Start Date End Date Ara Davis MD [address] [facility] [address] [place], [place] PCP - General Internal Medicine 10/20/17 documented as of this encounter
--- OUTSIDE RECORDS SUMMARY | 2025-03-23 14:18 | XMS_ITS | Clinical Summary ---
Author Organization [address] [place] [address] Address [address] [place] [address] Phone Care Team Providers Care Doctor Of Osteopathy Name Role Phone Ara Davis MD Primary Care Provider [phone] Allergies Active Allergy Reactions Criticality Noted Date [...] 10/19/2024 6:34 PM EDT Plan of Treatment Health Maintenance Due Date Last Done Comments Colorectal Cancer Screening: Colonoscopy 1973 Diabetes: Annual Foot Exam 12/30/1983 Diabetes: Annual Retina Eye Exam 12/30/1983 DTaP,Tdap,and Td Vaccines (1 - Tdap) 1992 Pneumococcal Vaccine: 50+ Years (1 of 2 - PCV) 1992 Hepatitis B Vaccines (3 of 3 - 19+ 3-dose series) 11/08/2015 09/13/2015, 06/15/2013, 11/11/2012 Cholesterol Screening (Lipid Panel) 05/10/2022 Social Influencers of Health Screening 05/10/2022 RSV Immunization Adult Patients (1 - Risk 50-74 years 1-dose series) 12/30/2023 Zoster Vaccines (1 of 2) 12/30/2023 Depression Screening 06/01/2024 COVID-19 Vaccine (3 - 2024-2 6 season) 2025 02/19/2021, 01/29/2021 Influenza Vaccine (#1) 2025 , 09/12/2015 Diabetes: Blood Sugar Contro l Test (HGBA1C) 04/28/2025 10/26/2024 Diabetes: Annual GFR (Glomerular Filtration Rate) 10/26/2025 10/26/2024, 10/19/2024 Hypertension/CHF/CAD Annual BMP Blood Test 10/26/2025 10/26/2024, 10/19/2024 Diabetes: Annual Urine Albumin-Creatinine Ratio (uACR) 02/21/2026 02/21/2025 HIV Screening Completed 06/12/2023 Hepatitis C Screening [...] Procedure Name Priority Date/Time Associated Diagnosis Comments MICROALBUMIN CREATININE URINE RATIO Routine 02/21/2025 7:43 AM EDT Diabetes mellitus ([facility] V24, [facility] V28) PROSTATE SPECIFIC ANTIGEN SCREEN Routine 02/21/2025 7:43 AM EDT Benign enlargement of prostate COMPREHENSIVE METABOLIC PANEL Routine 10/26/2024 8:12 AM EDT Diabetes mellitus ([facility]/HCC V24, [facility] V28) Adhesive bursitis of right shoulder Loss of weight Bariatric surgery status HEMOGLOBIN A1C Routine 10/26/2024 8:12 AM EDT Diabetes mellitus ([facility] V24, [facility] V28) Adhesive bursitis of right shoulder Loss of weight Bariatric surgery status from Last 3 Months or Most Recently Relevant to Health Maintenance Results * Prostate specific antigen screen (02/21/2025 7:43 AM EDT) PSA 0.69 0.00 - 4.00 ng/mL LAB CHEMISTRY METHOD 02/21/2025 10:41 AM EDT [facility] Blood Venous blood specimen / Unknown Venipuncture / Unknown 02/21/2025 7:43 AM EDT 02/21/2025 7:45 AM EDT Narrative [facility] - 02/21/2025 10:41 AM EDT The Siemens Advia Centaur Chemiluminescent Immunoassay is used. Results obtained with different assay methods or kits cannot be used interchangeably. Results cannot be interpreted as absolute evidence of the presence or absence of malignant disease. us Ara Davis MD LAB BLOOD ORDERABLES Final Re sult Performing Organization Address [facility]/ZIP Co de Phone Number [facility] [address] [place] [address], [place] [phone] * (ABNORMAL) Microalbumin creatinine urine ratio (02/21/2025 7:43 AM EDT) Creatinine, Urine 169.0 mg/dL LAB CHEMISTRY METHOD 02/21/2025 10:34 AM EDT [facility] Microalb, Ur 36.0(H) 0.0 - 29.0 mg/L LAB CHEMISTRY METHOD 02/21/2025 10:34 AM EDT [facility] Microalb/Crea t Ratio 21 <30 mg/g creat LAB CHEMISTRY METHOD 02/21/2025 10:34 AM EDT [facility] Urine Urine specimen obtained by clean catch procedure / Unknown Non-blood Collection / Unknown 02/21/2025 7:43 AM EDT 02/21/2025 7:45 AM EDT us Ara Davis MD LAB URINE ORDERABLES Final Re sult Performing Organization Address [facility]/ZIP Co de Phone Number [facility] [address] [place] [address], [place] [phone] * Hemoglobin A1c (10/26/2024 8:12 AM EDT) [...] sult [facility] [address] [place] [address], [place] [phone] * (ABNORMAL) Comprehensive metabolic panel (10/26/2024 8:12 AM EDT) [facility] Sodium 139 133 - 145 mmol/L LAB CHEMISTRY METHOD 10/26/2024 10:38 AM [facility] Potassium 3.9 3.5 - 5.5 mmol/L LAB CHEMISTRY METHOD 10/26/2024 10:38 AM [facility] Chloride 106 96 - 110 mmol/L LAB CHEMISTRY METHOD 10/26/2024 10:38 AM [facility] CO2 25 21 - 32 mmol/L LAB CHEMISTRY METHOD 10/26/2024 10:38 AM [facility] Anion Gap 8 3 - 11 LAB CHEMISTRY METHOD 10/26/2024 10:38 AM [facility] Glucose 80 70 - 100 mg/dL LAB CHEMISTRY METHOD 10/26/2024 10:38 AM [facility] BUN 17 5 - 25 mg/dL LAB CHEMISTRY METHOD 10/26/2024 10:38 AM [facility] Creatinine 0.62(L) 0.70 - 1.30 mg/dL LAB CHEMISTRY METHOD 10/26/2024 10:38 AM [facility] eGFR 116 >=60 mL/min/1. 73m2 LAB CHEMISTRY METHOD 10/26/2024 10:38 AM [facility] Comment:Calculation based on the Chronic Kidney Disease Epidemiology Collaboration (CKD-EPI) equation refit without adjustment for race. BUN/Creatinine Ratio 27.4 LAB CHEMISTRY METHOD 10/26/2024 10:38 AM [facility] Calcium 9.5 8.5 - 10.5 mg/dL LAB CHEMISTRY METHOD 10/26/2024 10:38 AM [facility] AST (SGOT) 22 10 - 42 unit/L LAB CHEMISTRY METHOD 10/26/2024 10:38 AM [facility] ALT (SGPT) 26 10 - 60 unit/L LAB CHEMISTRY METHOD 10/26/2024 10:38 AM T [facility] Alkaline Phosphatase 65 42 - 121 unit/L LAB CHEMISTRY METHOD 10/26/2024 10:38 AM [facility] Total Protein 7.5 6.0 - 8.0 g/dL LAB CHEMISTRY METHOD 10/26/2024 10:38 AM [facility] Albumin 4.2 3.2 - 5.0 g/dL LAB CHEMISTRY METHOD 10/26/2024 10:38 AM [facility] Total Bilirubin 1.3 0.0 - 1.4 mg/dL LAB CHEMISTRY METHOD 10/26/2024 10:38 AM [facility] Blood Venous blood specimen / Unknown Venipuncture / Unknown 10/26/2024 8:12 AM EDT 10/26/2024 8:12 AM EDT us Ara Davis MD LAB BLOOD ORDERABLES Final Re sult [facility] [address] [place] [address], from Last 3 Months or Most Recently Relevant to Health Maintenance Insurance MEDICAID - [place] Care Teams Doctor Of Osteopathy Relationship Specialty Start Date End Date Ara Davis MD [address] [facility] [address] [place], [place] PCP - General Internal Medicine 10/20/17
--- OUTSIDE RECORDS SUMMARY | 2025-03-23 14:19 | XMS_ITS | Clinical Summary ---
Author Organization [employer] Address [address] [facility] [address] [place] [address] Care Team Providers Care Cane Weigher Name Role Phone Unavailable Primary Care Provider [...] MG SL filmIndications :Uncomplicated opioid dependence (CMS/HCC) (HCC) Place 1 Film under the tongue 2 times daily for 21 days. 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 Blood Venous blood specimen / Unknown 06/12/2023 11:46 AM EST 06/12/2023 1:09 PM EST us Kashif Bejarano MD LAB BLOOD ORDERABLES Final Res ult Performing Organization Address [facility]/ZIP Co de Phone Number [facility] [address] [place] [address] [phone] * HIV-1/2 Antigen and Antibodies, Fourth Generation, with Reflexes (06/12/2023 11:46 AM EST) HIV AB/AG Nonreactive Nonreactive [facility] Comment:HIV-1 p24 Ag and/or HIV-1/HIV-2 Ab not detected.A test result that is nonreactive does not exclude thepossibility of exposure to or infection with HIV-1 and/orHIV-2. Nonreactive results in this assay for individualswith prior exposure to HIV-1 and/or HIV-2 may be due toantigen and antibody levels that are below the limit ofdetection of this assay.The [employer] HIV Ag/Ab Combo assay result andsupplemental assay results should be interpreted inconjunction with the patient's clinical presentation,history and other laboratory results. If the results areinconsistent with clinical evidence, additional testing issuggested to confirm the result. Blood Venous blood specimen / Unknown 06/12/2023 11:46 AM EST 06/12/2023 1:09 PM EST us Kashif Bejarano MD LAB BLOOD ORDERABLES Final Res ult Performing Organization Address [facility]/ZIP Co de Phone Number [facility] [address] [place] [address] [phone] from Last 3 Months or Most Recently Relevant to Health Maintenance Insurance [facility] STANDARD
== END 2025-03-23 12:04 | disposition home or self-care (01) ==
LOC: HO.HOS 11:16
PROVIDERS: Visit Provider Physician Assistant
DX: M77.8 Other enthesopathies, not elsewhere classified (principal)
CPT/HCPCS: 99213

== ENCOUNTER → 2025-03-23 11:16 | Outpatient (BNVA) | payer MEDICAID, SELFPAY | PROVIDERS: Visit Provider Physician Assistant | DX: M25.511 Pain in right shoulder (principal); M77.8 Other enthesopathies, not elsewhere classified | CPT/HCPCS: 99212 ==

== ENCOUNTER 2025-04-22 13:48 | Emergency (ER) | payer MEDICAID, SELFPAY ==
--- OUTSIDE RECORDS SUMMARY | 2025-04-18 09:05 | XMS_ITS | Encounter Summary ---
Author Organization [employer] Address [address] [place] [address] Care Team Providers Care Assistant Branch Manager Name Role Phone Ara Davis MD Primary Care Provider [phone] Encounter Details Date Type Department Care Team (Late st Contact Info) Description 04/18/2025 9:05 AM EST Lab Draw Station - [address] [place] [address] Polyarthropathy (Primary Dx) Social History Tobacco Use Types Packs/Day Years [...] as of this encounter Plan of Treatment Pending Results Name Type Priority Associated Diagnoses Date /Time Cyclic citrullinated peptide, IgG and IgA Lab Routine Polyarthropathy 04/18/2025 9:10 AM EST Scheduled Orders Name Type Priority Associated Diagnoses Orde r Schedule Cyclic citrullinated peptide, IgG and IgA Lab Routine Polyarthropathy 1 Occurrences starting 04/18/2025 until 04/18/2026 documented as of this encounter Procedures Procedure Name Priority Date/Time Associated Diagnosis Comments LIPID PANEL WITH REFLEX TO DIRECT LDL Routine 04/18/2025 9:10 AM EST Polyarthropathy DELMER IFA WITH TITER AND PATTERN Routine 04/18/2025 9:10 AM EST Polyarthropathy SEDIMENTATION RATE Routine 04/18/2025 9: 10 AM EST Polyarthropathy HEMOGLOBIN Routine 04/18/2025 9:10 AM EST Polyarthropathy RHEUMATOID FACTOR Routine 04/18/2025 9:1 0 AM EST Polyarthropathy COMPREHENSIVE METABOLIC PANEL Routine 04/18/2025 9:10 AM EST Polyarthropathy documented in this encounter Results * Sedimentation rate (04/18/2025 9:10 AM EST) [facility] Sed Rate 15 0 - 20 mm/hr LAB HEMETOLOGY METHOD 04/18/2025 10:18 AM EST [facility] Blood Venous blood specimen / Unknown Venipuncture / Unknown 04/18/2025 9:10 AM EST 04/18/2025 9:10 AM EST us Ara Davis MD LAB BLOOD ORDERABLES Final Re sult Performing Organization Address City/[facility]/ZIP Co de Phone Number [facility] [address] [place] [address], [place] [phone] * Rheumatoid factor (04/18/2025 9:10 AM EST) [facility] Rheumatoid Factor <3.5 <15.0 I Unit/mL 04/18/2025 12:38 PM EST [facility] Blood Venous blood specimen / Unknown Venipuncture / Unknown 04/18/2025 9:10 AM EST 04/18/2025 9:10 AM EST us Ara Davis MD LAB BLOOD ORDERABLES Final Re sult [facility] [address] [place] [address], [place] [phone] * Lipid panel with reflex to direct LDL (04/18/2025 9:10 AM EST) Cholesterol 181 0 - 200 mg/dL 04/18/2025 12:36 PM [facility] Triglycerides 92 0 - 150 mg/dL 04/18/2025 12:36 PM [facility] HDL 65 >=40 mg/dL 04/18/2025 12:36 PM [facility] LDL Calculated 98 0 - 100 mg/dL 04/18/2025 12:36 PM [facility] Comment:Estimated LDL Calcul ated using equation: Total cholesterol - HDL cholesterol - (Triglycerides/5) VLDL Cholesterol David 18.4 mg/dL 04/18/2025 12:36 PM [facility] Non HDL Chol. (LDL+VLDL) 116 <145 mg/dL 04/18/2025 12:36 PM [facility] Chol/HDL Ratio 2.8 0.0 - 4.4 04/18/2025 12:36 PM [facility] Blood Venous blood specimen / Unknown Venipuncture / Unknown 04/18/2025 9:10 AM EST 04/18/2025 9:10 AM EST us Ara Davis MD LAB BLOOD ORDERABLES Final Re sult [facility] [address] [place] [address], * Hemoglobin (04/18/2025 9:10 AM EST) Pathologist [facility] Hemoglobin 13.9 13.5 - 17.5 g/dL LAB HEMETOLOGY METHOD 04/18/2025 10:11 AM [facility] Blood Venous blood specimen / Unknown Venipuncture / Unknown 04/18/2025 9:10 AM EST 04/18/2025 9:10 AM EST us Ara Davis MD LAB BLOOD ORDERABLES Final Re sult [facility] [address] [place] [address], * (ABNORMAL) Comprehensive metabolic panel (04/18/2025 9:10 AM EST) Sodium 142 133 - 145 mmol/L 04/18/2025 12:36 PM [facility] Potassium 3.7 3.5 - 5.5 mmol/L 04/18/2025 12:36 PM [facility] Chloride 103 96 - 110 mmol/L 04/18/2025 12:36 PM [facility] CO2 29 21 - 32 mmol/L 04/18/2025 12:36 PM [facility] Anion Gap 10 3 - 11 04/18/2025 12:36 PM [facility] Glucose 68(L) 70 - 100 mg/dL 04/18/2025 12:36 PM [facility] BUN 19 5 - 25 mg/dL 04/18/2025 12:36 PM [facility] Creatinine 0.66(L) 0.70 - 1.30 mg/dL 04/18/2025 12:36 PM [facility] eGFR 114 >=60 mL/min/1. 73m2 04/18/2025 12:36 PM [facility] Comment:Calculation based on the Chronic Kidney Disease Epidemiology Collaboration (CKD-EPI) equation refit without adjustment for race. BUN/Creatinine Ratio 28.8 04/18/2025 12:36 PM [facility] Calcium 9.3 8.5 - 10.5 mg/dL 04/18/2025 12:36 PM [facility] AST (SGOT) 24 10 - 42 unit/L 04/18/2025 12:36 PM [facility] ALT (SGPT) 19 10 - 60 unit/L 04/18/2025 12:36 PM [facility] Alkaline Phosphatase 71 42 - 121 unit/L 04/18/2025 12:36 PM [facility] Total Protein 5.5(L) 6.0 - 8.0 g/dL 04/18/2025 12:36 PM [facility] Albumin 4.0 3.2 - 5.0 g/dL 04/18/2025 12:36 PM [facility] Total Bilirubin 0.8 0.0 - 1.4 mg/dL 04/18/2025 12:36 PM [facility] Blood Venous blood specimen / Unknown Venipuncture / Unknown 04/18/2025 9:10 AM EST 04/18/2025 9:10 AM EST us Ara Davis MD LAB BLOOD ORDERABLES Final Re sult Performing Organization Address City/[facility]/ZIP Co de Phone Number [facility] [address] [place] [address], [place] [phone] * DELMER IFA with titer and pattern (04/18/2025 9:10 AM EST) DELMER Negative Negative 04/19/2025 11:39 AM EST [facility] Comment:DELMER performed by ind irect immunofluorescence (IFA) using HEp-2 substrate. Blood Venous blood specimen / Unknown Venipuncture / Unknown 04/18/2025 9:10 AM EST 04/18/2025 9:10 AM EST us Ara Davis MD LAB BLOOD ORDERABLES Final Re sult [facility] [address] [place] [address], [place] [phone] documented in this encounter Visit Diagnoses Diagnosis Polyarthropathy- Primary Unspecified polyarthropathy or polyarthritis, site unspecified documented in this encounter Care Teams Assistant Branch Manager Relationship Specialty Start Date End Date Ara Davis MD [address] PCP - General Internal Medicine 10/20/17 documented as of this encounter
--- NOTE | ~2025-04-22 | CT_ITS ---
CLINICAL HISTORY: headache and left facial numbness CT head without contrast Comparison: None provided Findings: No intra-axial mass, midline shift, hydrocephalus, or acute hemorrhage. No significant atrophy-like change or white matter disease. The visualized paranasal sinuses and mastoid air cells are normal. The orbits are unremarkable. No skull fracture. IMPRESSION: No intracranial findings. This document has been electronically signed by: Enrique London MD on 04/22/2025 15:49:43
--- NOTE | 2025-04-22 14:25 | ED.GENADULT ---
HPI - General Adult General Chief complaint: Headache Stated complaint: Headache Time Seen by Provider: 04/22/25 14:48 Source: patient and family ( at bedside) Mode of arrival: ambulatory Limitations: no limitations History of Present Illness ED Provider: JAYCEE Smith HPI narrative: 49-year-old with medical history of arthritis, HTN, presents to the ED due to 1 week of headache. Patient states that the headache travels around his head, but has been constant. Patient states he woke up today with a headache of the right side of his head with pain radiating into the right eye, with redness and swelling of the right eye, blurry vision of the R eye, numbness of his lips and an episode of dizziness that lasted approximately 15 seconds. Denies fever, chills, chest pain, shortness of breath, nausea, vomiting, black/tarry stool, urinary symptoms MD complaint: R sided headache radiating to R eye Related Data Home Medications ?Medication ?Instructions ?Recorded ?Confirmed metformin 500 mg tablet 500 mg PO BID 08/19/22 03/23/25 aripiprazole 15 mg tablet 15 mg PO DAILY 10/08/22 03/23/25 atorvastatin 20 mg tablet 20 mg PO DAILY 10/08/22 03/23/25 buprenorphine 8 mg-naloxone 2 mg 10 mg sublingual BID 10/08/22 03/23/25 sublingual film (Suboxone) famotidine 40 mg tablet 40 mg PO BEDTIME 12/15/23 03/23/25 sertraline 100 mg tablet 200 mg PO DAILY 12/15/23 03/23/25 trazodone 100 mg tablet 200 mg PO BEDTIME PRN 12/15/23 03/23/25 Previous Rx's ?Medication ?Instructions ?Recorded celecoxib 200 mg capsule (Celebrex) 200 mg PO BID 30 days #60 caps 03/23/25 Allergies Allergy/AdvReac Type Severity Reaction Status Date / Time No Known Allergies Allergy Verified 04/22/25 14:29 Review of Systems Review of Systems: Yes all other systems are reviewed and are negative PMFSH Past Medical History Attestation statement: The following information was validated with the patient. Source: old records reviewed, obtained from family ( at bedside corroborating history) and nursing notes reviewed Medical History History of prediabetes Surgical History Hx of carpal tunnel repair Hx of knee surgery History of bariatric surgery Social History Social History Alcohol intake: current Patient Tobacco Use Status: Never used Tobacco Smoked in Last 30 Days: No Use of substances other than those prescribed or required for medical reasons: Yes Substance Use Type: Marijuana Substance Use Type Other:: suboxone Substance Use Frequency: Daily Advance Directives: No Advance Directives Information Provided: No Do you have a plan to hurt others: No Plan Current occupational status: unemployed 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 HEENT: ?NC, AT. MMM. EOMI, clear conjunctiva, no edema, oropharynx clear. NECK: ?Supple without lymphadenopathy.? No stiffness or restricted ROM. HEART:? Normal rate and regular rhythm, normal S1/S2, no m/r/g LUNGS:? CTAB, moving air well. No crackles or wheezes are heard. ABDOMEN: ?Soft, nontender, nondistended with good bowel sounds heard. BACK: No CVAT, no obvious deformity. EXTREMITIES: ?Without cyanosis, clubbing or edema. NEUROLOGICAL: ?Grossly nonfocal. Alert and oriented, moving all 4 extremities. Observed to ambulate with normal gait. Skin: ?Warm and dry without any rash. Course Course Course Narrative: RME, this is a rapid medical exam performed by Wade Delarosa please refer to primary provider for complete H&P- 49 year old primarily Danish speaking male presents for evaluation of headache and left facial numbness. He reports his symptoms started one week ago. He also reports right eye blurry vision. Plan for labs and ct brain Medications Administered Discontinued Medications Generic Name Dose Route Start Last Admin Trade Name Freq PRN Reason Stop Dose Admin Lactated Ringer's 1,000 mls @ 999 mls/hr 04/22/25 16:02 04/22/25 17:33 Lr IV 04/22/25 17:02 Infused .Q1H1M ONE Infusion Acetaminophen 1,000 mg in 100 mls @ 400 mls/hr 04/22/25 16:06 04/22/25 16:51 Ofirmev IV 04/22/25 16:20 Infused ONCE ONE Infusion Medical Decision Making Medical Decision Making [facility] Narrative: 49-year-old with medical history of arthritis, HTN, presents to the ED due to 1 week of headache. Patient states that the headache travels around his head, but has been constant. Patient states he woke up today with a headache of the right side of his head with pain radiating into the right eye, with redness and swelling of the right eye, blurry vision of the R eye, numbness of his lips and an episode of dizziness that lasted approximately 15 seconds. VS on initial observation-BP 132/80, pulse rate of 70, respiratory rate of 16, afebrile with oral temp of 98.2?, O2 saturation 96% on room air. On physical exam the head is normocephalic, atraumatic, no tenderness to light touch over the temporal regions, no overlying skin changes or rashes, EOMI, clear conjunctiva, pupils reactive to accommodation and light reflex. Neurologically intact. Labs without leukocytosis/leukopenia, H&H stable, elevated bilirubin of 1.2, patient without abdominal pain, CRP/ESR WNL. Viral serology negative CT head/brain negative for intracranial findings. Patient was medicated with 1L IV fluids and 1g IV tylenol with improvement of his symptoms. Patient without leukocytosis, neurologically intact. CT head negative for intracranial findings. At this time, I believe his symptoms are due to hemiplegic migraine. I have counseled patient to follow up with his PCP for further management and evaluation of migraines. Patient feels well enough to go home for self care. Patient and his are in agreement of the plan. Differential Diagnosis Differential Diagnoses: The differential diagnosis associated with the presentation includes ICH Intracranial mass Tension headache Cluster headache Hemiplegic migraine Admission/Observation Consideration of admission/observation: Escalation of care including admission/observation considered Lab Data [facility] Lab Attestation statement: I reviewed the patient's lab results. 04/22/25 14:45 04/22/25 14:45 Labs: Lab Results 04/22/25 04/22/25 Range/Units 14:44 14:45 WBC 6.0 (4.8-10.8) X10*3/uL RBC 4.54 L (4.60-5.80) X10*6/uL Hgb 14.2 (14.0-18.0) g/dl Hct 40.9 L (42.0-52.0) % MCV 90.1 (80.0-98.0) fL MCH 31.3 (27.0-33.0) pg MCHC 34.7 (31.0-36.0) g/dl RDW 13.2 (11.0-16.0) % Plt Count 216 (160-400) X10*3/uL MPV 9.3 L (9.4-12.4) fL Immature Gran % (Auto) 0.2 (0.0-0.4) % Neut % (Auto) 56.4 (45-73) % Lymph % (Auto) 30.8 (20-40) % [place] % (Auto) 8.8 (2-11) % Eos % (Auto) 3.0 (0-4) % Baso % (Auto) 0.8 (0-2) % Lymph # (Auto) 1.9 (1.2-4.9) X10*3/uL [place] # (Auto) 0.5 (0.1-1.2) X10*3/uL Eos # (Auto) 0.2 (0.0-0.4) X10*3/uL Baso # (Auto) 0.1 (0.0-0.2) X10*3/uL Abs Immat Gran (auto) 0.01 (0.00-0.03) X10*3/uL Absolute Neuts (auto) 3.4 (2.0-8.3) x10*3/uL Absolute Nucleated RBC 0.000 (0.0-0.012) X10*3/uL Nucleated RBC % (auto) 0.0 (0.0-0.2) /100WBC ESR 9 (0-15) MM/HR Sodium 139 (135-145) mmol/L Potassium 4.1 (3.3-5.1) mmol/L Chloride 106 (96-108) mmol/L Carbon Dioxide 26 (22-29) mmol/L Anion Gap 11 L (12-20) BUN 15 (9-16) mg/dL Creatinine 0.58 (0.5-1.4) mg/dL Estim Creat Clear Calc 179.8 Estimated GFR > 60 Random Glucose 108 (60-115) mg/dL Calcium 9.1 D (8.4-10.2) mg/dL Total Bilirubin 1.2 H (0.0-1.0) mg/dL AST 36 (5-37) U/L ALT 29 (0-40) U/L Alkaline Phosphatase 66 (39-117) U/L C-Reactive Protein 0.17 (< or = 0.50) mg/dL Total Protein 6.9 (6.5-8.0) g/dL Albumin 4.3 (3.5-5.0) g/dL Influenza Type A (PCR) NEGATIVE (Negative) Influenza Type B (PCR) NEGATIVE (Negative) RSV RNA Qual (PCR) NEGATIVE (Negative) SARS-CoV-2 RNA (RT-PCR) NEGATIVE (Negative) Discharge Plan Discharge Clinical Impression: Hemiplegic migraine Patient Disposition: Home, Self-Care Instructions: Migraine Headache (ED) Additional Instructions: You were evaluated in the emergency department today for 1 week of headaches. Your lab work today was normal without any elevation in your white blood cell count indicative of infection. Your EKG showed normal sinus rhythm. The CT of your head brain was negative for any acute abnormalities. Your symptoms today are most consistent with hemiplegic migraine which can cause numbness and tingling, blurry vision. To manage headaches at home you can take 500 mg of Tylenol every 6 hours. Please follow up with your primary care doctor for further evaluation and management of migraine headaches. Please return to the emergency department if you experience worsening headache, visual changes, confusion, altered mental status, chest pain, shortness of breath, abdominal pain, nausea, vomiting or any new/worsening/concerning symptoms. Prescriptions: No Action metformin 500 mg tablet 500 mg PO BID famotidine 40 mg tablet 40 mg PO BEDTIME sertraline 100 mg tablet 200 mg PO DAILY trazodone 100 mg tablet 200 mg PO BEDTIME PRN celecoxib [Celebrex] 200 mg capsule 200 mg PO BID 30 Days Qty: 60 3RF atorvastatin 20 mg tablet 20 mg PO DAILY buprenorphine-naloxone [Suboxone] 8-2 mg film 10 mg sublingual BID aripiprazole 15 mg tablet 15 mg PO DAILY Print Language: Danish
[2025-04-22 14:26] VITALS: BP 132/80; PULSE 70; RESP 16; O2SAT 96; BMI 22.6
--- NOTE | 2025-04-22 14:28 | ECG_ITS ---
Test Reason : WEAKNESS Blood Pressure : */* mmHG Vent. Rate : 66 BPM Atrial Rate : 66 BPM P-R Int : 186 ms QRS Dur : 92 ms QT Int : 408 ms P-R-T Axes : 73 57 59 degrees QTcB Int : 427 ms Normal sinus rhythm Normal ECG When compared with ECG of 07-Jul-2016 12:35, No significant change was found Referred By: Joel Delarosa Electronically Signed By: RUBEN ARRINGTON
--- OUTSIDE RECORDS SUMMARY | 2025-04-22 14:49 | XMS_ITS | Patient Health Record ---
Author Organization [facility] Address [address] [place] [address] Care Team Providers Care Tie Layer Name Role Phone Ara Davis Primary Care Provider Unavailab Everett Chaves Unavailable [phone] Reason For Referral No Information Medications Medication SIG (Take, Route, Frequency, Duration) Notes Start Date End Date Status Sertraline HCl 100 MG Tablet TAKE 1 1/2 TABS BY MOUTH ONCE DAILY Oral; Duration: 30 Active ProAir HFA Active Omeprazole 20 MG Capsule Delayed Release TAKE 1 CAPSULE BY MOUTH DAILY Oral; Duration: 30 Active MiraLax (colon prep) 8.3 ounce ((238) grams mixed with Gatorade or Crystal Light orally begin at 5:00 p.m. the day before the procedure; Duration: 1 day 09/05/2017 Active Dulcolax (colon prep) 5 MG Tablet Delayed Release take at 3:00 p.m and 7:00p.m. Orally two tablets twice a day for one day; Duration: 1 day 09/05/2017 Active KlonoPIN Active Losartan Potassium-HCTZ Active Fenofibrate Active Divalproex Sodium Ac tive QUEtiapine Fumarate Active Social History Tobacco Use: Social History Observation Description Date Details (start date - stop date) Current Smoker NA - NA Social History Tobacco Use: Social Info Question Answer Notes Tobacco Use/Smoking Patient is a current smoker How often do you smoke cigarettes? some days, but not every day How many cigarettes a day do you smoke? 5 or less How soon after you wake up do you smoke your first cigarette? after 60 minutes Are you interested in quitting? 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; smokes 2 cigarettes QD; no sig alcohol Problems Problem Type SNOMED Code ICD Code Onset Dates Problem Status W/U Status Risk Notes Problem Screening for malignant neoplasm of colon (074439443) Encounter for screening for malignant neoplasm of colon (Z12.11) Active confirmed Problem Screening for malignant neoplasm of rectum (657217274) Encounter for screening for malignant neoplasm of rectum (Z12.12) Active confirmed Problem Elevated liver enzymes level (620370351) Elevated liver enzymes (R74.8) Active confirmed Problem Gastroesophageal reflux disease (881207951) Gastroesophageal reflux disease, esophagitis presence not specified (K21.9) Active confirmed Problem Family History of Cancer of Colon (Situation) (642195688) Family history of colon cancer (Z80.0) Active confirmed Plan Of Treatment Pending Test Test Name Order Date CERULOPLASMIN 04/11/2016 Future Test Test Name Order Date UPPER GI ENDOSCOPY 04/11/2016 COLONOSCOPY 04/11/2016 UPPER GI ENDOSCOPY 09/02/2017 COLONOSCOPY 09/02/2017 Insurance Providers Payer Name Payer Address Payer Phone Subscriber Number Group Number Insured Name Patient Relationship to Insured Coverage Start Date Coverage End Date [facility] [employer] [facility] [address] [address] [place], [place] [id number] TONE LARSEN Self - patient is the insured MEDICAID OF [facility] [address] [place] [address] [id number] TONE LARSEN Self - patient is the insured Medical (General) History Medical History History ICD Code Hypertension Asthma Hepatitis C--reported + antibody, but ne g viral load Sleep apnea-uses CPAP Denies IL,DM,CVA,renal disease GERD Depresssion and anxiety Hyperlipidemia Elevated liver tests--neg. w /u in 2016---fatty liver--minimal elevations in 2016 Surgical History Surgery Date(Month/Year) hernia repair-umbilical 2011 cholecystectomy 2011 right knee arthroscopy 2013
--- OUTSIDE RECORDS SUMMARY | 2025-04-22 14:49 | XMS_ITS | Clinical Summary ---
Author Organization [employer] Address [address] [facility] [address] [place] [address] Care Team Providers Care Admin Dir Name Role Phone Unavailable Primary Care Provider [...] 07/29/2023 HTN (hypertension) 07/29/2023 Bipolar 1 disorder ([facility]/HCC) 07/29/2023 History of tobacco use 07/29/2023 GERD (gastroesophageal reflux disease) Congenital varus deformity of knee 07/29/2023 Asthma 07/29/2023 Moderate opioid use disorder , in sustained remission ([facility]) 06/22/2023 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 ([facility]) 06/22/2023 KARLIE (generalized anxiety disorder) 06/22/2023 Family [...] 19+ 3-dose series) 11/08/2015 09/13/2015, 06/15/2013, 11/11/2012 RSV Patients and Patients Aged 60 years or older (1 - Risk 50-74 years 1-dose series) 12/30/2023 Zoster Vaccines (1 of 2) 12/30/2023 Depression Monitoring 01/27/2024 07/29/2023 , 07/29/2023 SDOH Screening 07/21/2024 07/21/2023 Tobacco Screening 07/29/2024 07/29/2023 COVID-19 Vaccine (3 - 2024-2 6 season) 2025 02/19/2021, 01/29/2021 Influenza Vaccine (#1) 2025 0, 09/12/2015 HIV Screening Completed 06/12/2023 Hepatitis C Screening [...] EST) Hepatitis C Antibody Reactive( A) Nonreactive [facility] Comment:Presumptive evidence of antibodies to HCV. Blood Venous blood specimen / Unknown 06/12/2023 11:46 AM EST 06/12/2023 1:09 PM EST us Kashif Bejarano MD LAB BLOOD ORDERABLES Final Res ult Performing Organization Address City/[facility]/ZIP Co de Phone Number [facility] [address] [place] [address] [phone] * HIV-1/2 Antigen and Antibodies, Fourth Generation, with Reflexes (06/12/2023 11:46 AM EST) HIV AB/AG Nonreactive Nonreactive [facility] Comment:HIV-1 p24 Ag and/or HIV-1/HIV-2 Ab not detected.A test result that is nonreactive does not exclude thepossibility of exposure to or infection with HIV-1 and/orHIV-2. Nonreactive results in this assay for individualswith prior exposure to HIV-1 and/or HIV-2 may be due toantigen and antibody levels that are below the limit ofdetection of this assay.The Zane Prep HIV Ag/Ab Combo assay result andsupplemental assay results should be interpreted inconjunction with the patient's clinical presentation,history and other laboratory results. If the results areinconsistent with clinical evidence, additional testing issuggested to confirm the result. Blood Venous blood specimen / Unknown 06/12/2023 11:46 AM EST 06/12/2023 1:09 PM EST us Kashif Bejarano MD LAB BLOOD ORDERABLES Final Res ult Performing Organization Address [facility] Co de Phone Number [facility] [address] [place] [address] [phone] from Last 3 Months or Most Recently Relevant to Health Maintenance Insurance [facility] STANDARD
--- OUTSIDE RECORDS SUMMARY | 2025-04-22 14:49 | XMS_ITS | Clinical Summary ---
Author Organization [address] [place] [address] Address [address] [place] [address] Phone Care Team Providers Care [place] Bridge Name Role Phone Ara Davis MD Primary Care Provider [phone] Allergies Active Allergy Reactions Criticality Noted Date Comments Latex Hives 10/11/2024 Medications No known medications Active Problems Problem Noted Date Diagnosed Date GERSON treated with BiPAP Overview (10/19/2024): DX:GERSON treated with BiPAP Encounters Date Type Department Care Team Description 04/18/2025 9:05 AM EST Lab Draw Station - [address] [address] Polyarthropathy (Primary Dx) from Last 3 Months Surgical History Surgery [...] 19+ 3-dose series) 11/08/2015 09/13/2015, 06/15/2013, 11/11/2012 Social Influencers of Health Screening 05/10/2022 RSV Immunization Adult Patients (1 - Risk 50-74 years 1-dose series) 12/30/2023 Zoster Vaccines (1 of 2) 12/30/2023 Depression Screening 06/01/2024 COVID-19 Vaccine (3 - 2024-2 6 season) 2025 02/19/2021, 01/29/2021 Influenza Vaccine (#1) 2025 , 09/12/2015 Diabetes: Blood Sugar Contro l Test (HGBA1C) 04/28/2025 10/26/2024 Diabetes: Annual Urine Albumin-Creatinine Ratio (uACR) 02/21/2026 02/21/2025 Diabetes: Annual GFR (Glomerular Filtration Rate) 04/18/2026 04/18/2025, 10/26/2024, 10/19/2024 Hypertension/CHF/CAD Annual BMP Blood Test 04/18/2026 04/18/2025, 10/26/2024, 10/19/2024 Cholesterol Screening (Lipid Panel) 04/18/2030 04/18/2025 HIV Screening Completed 06/12/2023 Hepatitis C Screening [...] Procedure Name Priority Date/Time Associated Diagnosis Comments DELMER IFA WITH TITER AND PATTERN Routine 04/18/2025 9:10 AM EST Polyarthropathy COMPREHENSIVE METABOLIC PANEL Routine 04/18/2025 9:10 AM EST Polyarthropathy HEMOGLOBIN Routine 04/18/2025 9:10 AM EST Polyarthropathy LIPID PANEL WITH REFLEX TO DIRECT LDL Routine 04/18/2025 9:10 AM EST Polyarthropathy RHEUMATOID FACTOR Routine 04/18/2025 9:1 0 AM EST Polyarthropathy SEDIMENTATION RATE Routine 04/18/2025 9: 10 AM EST Polyarthropathy MICROALBUMIN CREATININE URINE RATIO Routine 02/21/2025 7:43 AM EDT Diabetes mellitus (CMS/HCC V24, CMS/HCC V28) PROSTATE SPECIFIC ANTIGEN SCREEN Routine 02/21/2025 7:43 AM EDT Benign enlargement of prostate HEMOGLOBIN A1C Routine 10/26/2024 8:12 AM EDT Diabetes mellitus ([facility] V24, [facility] V28) Adhesive bursitis of right shoulder Loss of weight Bariatric surgery status from Last 3 Months or Most Recently Relevant to Health Maintenance Results * Lipid panel with reflex to direct LDL (04/18/2025 9:10 AM EST) Cholesterol 181 0 - 200 mg/dL 04/18/2025 12:36 PM EST [facility] Triglycerides 92 0 - 150 mg/dL 04/18/2025 12:36 PM [facility] HDL 65 >=40 mg/dL 04/18/2025 12:36 PM [facility] LDL Calculated 98 0 - 100 mg/dL 04/18/2025 12:36 PM [facility] Comment:Estimated LDL Calcul ated using equation: Total cholesterol - HDL cholesterol - (Triglycerides/5) VLDL Cholesterol David 18.4 mg/dL 04/18/2025 12:36 PM [facility] Non HDL Chol. (LDL+VLDL) 116 <145 mg/dL 04/18/2025 12:36 PM [facility] Chol/HDL Ratio 2.8 0.0 - 4.4 04/18/2025 12:36 PM [facility] Blood Venous blood specimen / Unknown Venipuncture / Unknown 04/18/2025 9:10 AM EST 04/18/2025 9:10 AM EST us Ara Davis MD LAB BLOOD ORDERABLES Final Re sult [facility] [address] [place] [address], [place] [phone] * DELMER IFA with titer and pattern (04/18/2025 9:10 AM EST) DELMER Negative Negative 04/19/2025 11:39 AM EST [facility] Comment:DELMER performed by ind irect immunofluorescence (IFA) using HEp-2 substrate. Blood Venous blood specimen / Unknown Venipuncture / Unknown 04/18/2025 9:10 AM EST 04/18/2025 9:10 AM EST us Ara Davis MD LAB BLOOD ORDERABLES Final Re sult Performing Organization Address [facility] Co de Phone Number [facility] [address] [place] [address], [place] [phone] * Sedimentation rate (04/18/2025 9:10 AM EST) Sed Rate 15 0 - 20 mm/hr LAB HEMETOLOGY METHOD 04/18/2025 10:18 AM EST [facility] Blood Venous blood specimen / Unknown Venipuncture / Unknown 04/18/2025 9:10 AM EST 04/18/2025 9:10 AM EST us Ara Davis MD LAB BLOOD ORDERABLES Final Re sult Performing Organization Address [facility] de Phone Number [facility] [address] [place] [address], [place] [phone] * Hemoglobin (04/18/2025 9:10 AM EST) Hemoglobin 13.9 13.5 - 17.5 g/dL LAB HEMETOLOGY METHOD 04/18/2025 10:11 AM EST [facility] Blood Venous blood specimen / Unknown Venipuncture / Unknown 04/18/2025 9:10 AM EST 04/18/2025 9:10 AM EST us Ara Davis MD LAB BLOOD ORDERABLES Final Re sult Performing Organization Address [facility]/ZIP Co de Phone Number [facility] [address] [place] [address], [place] [phone] * Rheumatoid factor (04/18/2025 9:10 AM EST) Pathologist [facility] Rheumatoid Factor <3.5 <15.0 I Unit/mL 04/18/2025 12:38 PM [facility] Blood Venous blood specimen / Unknown Venipuncture / Unknown 04/18/2025 9:10 AM EST 04/18/2025 9:10 AM EST us Ara Davis MD LAB BLOOD ORDERABLES Final Re sult [facility] [address] [place] [address], [place] [phone] * (ABNORMAL) Comprehensive metabolic panel (04/18/2025 9:10 AM EST) [facility] Sodium 142 133 - 145 mmol/L 04/18/2025 12:36 PM [facility] Potassium 3.7 3.5 - 5.5 mmol/L 04/18/2025 12:36 PM [facility] Chloride 103 96 - 110 mmol/L 04/18/2025 12:36 PM [facility] CO2 29 21 - 32 mmol/L 04/18/2025 12:36 PM [facility] Anion Gap 10 3 - 11 04/18/2025 12:36 PM [facility] Glucose 68(L) 70 - 100 mg/dL 04/18/2025 12:36 PM [facility] BUN 19 5 - 25 mg/dL 04/18/2025 12:36 PM [facility] Creatinine 0.66(L) 0.70 - 1.30 mg/dL 04/18/2025 12:36 PM [facility] eGFR 114 >=60 mL/min/1. 73m2 04/18/2025 12:36 PM [facility] Comment:Calculation based on the Chronic Kidney Disease Epidemiology Collaboration (CKD-EPI) equation refit without adjustment for race. BUN/Creatinine Ratio 28.8 04/18/2025 12:36 PM [facility] Calcium 9.3 8.5 - 10.5 mg/dL 04/18/2025 12:36 PM [facility] AST (SGOT) 24 10 - 42 unit/L 04/18/2025 12:36 PM [facility] ALT (SGPT) 19 10 - 60 unit/L 04/18/2025 12:36 PM [facility] Alkaline Phosphatase 71 42 - 121 unit/L 04/18/2025 12:36 PM [facility] Total Protein 5.5(L) 6.0 - 8.0 g/dL 04/18/2025 12:36 PM [facility] Albumin 4.0 3.2 - 5.0 g/dL 04/18/2025 12:36 PM [facility] Total Bilirubin 0.8 0.0 - 1.4 mg/dL 04/18/2025 12:36 PM [facility] Blood Venous blood specimen / Unknown Venipuncture / Unknown 04/18/2025 9:10 AM EST 04/18/2025 9:10 AM EST us Ara Davis MD LAB BLOOD ORDERABLES Final Re sult [facility] [address] [place] [address], * Prostate specific antigen screen (02/21/2025 7:43 AM EDT) PSA 0.69 0.00 - 4.00 ng/mL LAB CHEMISTRY METHOD 02/21/2025 10:41 AM EDT [facility] Blood Venous blood specimen / Unknown Venipuncture / Unknown 02/21/2025 7:43 AM EDT 02/21/2025 7:45 AM EDT Narrative [facility] - 02/21/2025 10:41 AM EDT The Siemens Advia Centaur Chemiluminescent Immunoassay is used. Results obtained with different assay methods or kits cannot be used interchangeably. Results cannot be interpreted as absolute evidence of the presence or absence of malignant disease. us Ara Davis MD LAB BLOOD ORDERABLES Final Re sult Performing Organization Address City/[facility]/ZIP Co de Phone Number [facility] [address] [place] [address], [place] [phone] * (ABNORMAL) Microalbumin creatinine urine ratio (02/21/2025 7:43 AM EDT) Creatinine, Urine 169.0 mg/dL LAB CHEMISTRY METHOD 02/21/2025 10:34 AM EDT [facility] Microalb, Ur 36.0(H) 0.0 - 29.0 mg/L LAB CHEMISTRY METHOD 02/21/2025 10:34 AM EDT [facility] Microalb/Crea t Ratio 21 <30 mg/g creat LAB CHEMISTRY METHOD 02/21/2025 10:34 AM EDT [facility] Urine Urine specimen obtained by clean catch procedure / Unknown Non-blood Collection / Unknown 02/21/2025 7:43 AM EDT 02/21/2025 7:45 AM EDT us Ara Davis MD LAB URINE ORDERABLES Final Re sult Performing Organization Address City/[facility]/ZIP Co de Phone Number [facility] [address] [place] [address], [place] [phone] * Hemoglobin A1c (10/26/2024 8:12 AM EDT) Hemoglobin A1C 4.8 <6.5 % LAB CHEMISTRY METHOD 10/26/2024 10:19 AM EDT [facility] Mean Bld Glu Estim. 91 mg/dL LAB CHEMISTRY METHOD 10/26/2024 10:19 AM EDT [facility] Blood Venous blood specimen / Unknown Venipuncture / Unknown 10/26/2024 8:12 AM EDT 10/26/2024 8:12 AM EDT us Ara Davis MD LAB BLOOD ORDERABLES Final Re sult [facility] ([facility] [address] [place] [address], from Last 3 Months or Most Recently Relevant to Health Maintenance Insurance MEDICAID - [place] Care Teams [place] Relationship Specialty Start Date End Date Ara Davis MD [address] PCP - General Internal Medicine 10/20/17
--- OUTSIDE RECORDS SUMMARY | 2025-04-22 14:49 | XMS_ITS | Encounter Summary ---
Author Organization [employer] Address [address] [place] [address] Care Team Providers Care Automotive Worker Name Role Phone Ara Davis MD Primary Care Provider Encounter Details Date Type Department Care Team (Late st Contact Info) Description 11/07/2024 Lab Requisition [facility] Lab [address] [facility] [place] [address] Ara Davis MD [address] [place] [address] [place] [address] Benign prostatic hyperplasia without lower urinary tract symptoms; Type 2 diabetes mellitus without complications ([facility] V24, [facility] V28) Social History Tobacco Use Types [...] Routine Type 2 diabetes mellitus without complications ([facility] V24, [facility] V28) Ordered: 11/07/2024 documented as of this encounter Visit Diagnoses Diagnosis Benign prostatic hyperplasia without lower urinary tract symptoms Type 2 diabetes mellitus without complications ([facility] V24, [facility] V28) documented in this encounter Care Teams Automotive Worker Relationship Specialty Start Date End Date Ara Davis MD [address] [facility] [address] [place], [place] PCP - General Internal Medicine 10/20/17 documented as of this encounter
[2025-04-22 14:50] LABS: MANUAL DIFF FLAG NO
[2025-04-22 14:51] LABS: Hematocrit 40.9 % (42.0-52.0); Hemoglobin 14.2 g/dl (14.0-18.0); Imm Gran Abs Auto 0.01 X10*3/uL (0.00-0.03); Imm Gran Pct Auto 0.2 % (0.0-0.4); Lymphocytes Absolute Auto 1.9 X10*3/uL (1.2-4.9); Mean Corpuscular HGB Conc 34.7 g/dl (31.0-36.0); Mean Corpuscular Hemoglobin 31.3 pg (27.0-33.0); Mean Corpuscular Volume 90.1 fL (80.0-98.0); NRBC Abs Auto 0.000 X10*3/uL (0.0-0.012); NRBC Pct Auto 0.0 /100WBC (0.0-0.2); Platelet Count 216 X10*3/uL (160-400); Red Blood Count 4.54 X10*6/uL (4.60-5.80); White Blood Count 6.0 X10*3/uL (4.8-10.8)
[2025-04-22 15:05] LABS: Alanine Aminotransferase 29 U/L (0-40); Albumin Level 4.3 g/dL (3.5-5.0); Alkaline Phosphatase 66 U/L (39-117); Anion Gap 11 (12-20); Aspartate Amino Transferase 36 U/L (5-37); Blood Urea Nitrogen 15 mg/dL (9-16); Calcium 9.1 mg/dL (8.4-10.2); Carbon Dioxide 26 mmol/L (22-29); Chloride 106 mmol/L (96-108); Creatinine Clr Calc Pharmacy 179.8; Estimated Glomerular Filt Rate > 60; Potassium 4.1 mmol/L (3.3-5.1); Sodium 139 mmol/L (135-145); Total Protein 6.9 g/dL (6.5-8.0)
[2025-04-22 15:35] LABS: Erythrocyte Sedimentation Rate 9 MM/HR (0-15)
[2025-04-22 15:40] VITALS: BP 137/80; PULSE 59; RESP 14; TEMP 36.8; O2SAT 96
[2025-04-22 15:49] LABS: Resp Syncy Virus RNA Qual PCR NEGATIVE (Negative); SARS COV2 PCR INHOUSE NEGATIVE (Negative)
[2025-04-22 16:07] VITALS: BP 123/87; PULSE 57; RESP 14; TEMP 36.7; O2SAT 97
[2025-04-22] MEDS: Lactated Ringers 1,000 ML 999 ML IV (16:32)
--- NOTE | 2025-04-22 17:08 | PC.NURSE ---
Patient presents to ED c/o headache with blurry vision especially in right eye Denies injury Patient received tylenol for pain, with somewhat effect Eyes PERRLA IV 20G [facility], currently running LR Head CT - no inter cranial findings Plan of care on going
[2025-04-22 18:17] VITALS: BP 119/70; PULSE 75; RESP 14; TEMP 36.7; O2SAT 97
[2025-04-22 18:18] VITALS: BP 119/70; PULSE 75; RESP 14; TEMP 36.7; O2SAT 97
== END 2025-04-22 18:18 | disposition home or self-care (01) ==
PROVIDERS: Physician Assistant; Emergency Provider Emergency Medicine Emergency Medical Services; PCP Internal Medicine
DX: G43.409 Hemiplegic migraine, not intractable, without status migrainosus (principal); R20.0 Anesthesia of skin; R53.1 Weakness; Z03.818 Encounter for observation for suspected exposure to other biological agents ruled out; I10 Essential (primary) hypertension
CPT/HCPCS: 36415; 70450; 80053; 85025; 85652; 86140; 87637; 93005; 96365; 99284; 99285; J0131; J7120

== ENCOUNTER → 2025-04-22 14:26 | Outpatient (BNV) | payer MEDICAID, SELFPAY | PROVIDERS: Emergency Provider Emergency Medicine Emergency Medical Services; PCP Internal Medicine; Visit Provider Radiology Vascular & Interventional Radiology | DX: R51.9 Headache, unspecified (principal); R20.2 Paresthesia of skin | CPT/HCPCS: 70450 ==

== ENCOUNTER → 2025-04-22 14:28 | Outpatient (BNV) | payer MEDICAID, SELFPAY | PROVIDERS: Emergency Provider Emergency Medicine Emergency Medical Services; PCP Internal Medicine; Visit Provider Internal Medicine | DX: R53.1 Weakness (principal) | CPT/HCPCS: 93010 ==